=== PATIENT | female | born 1940 | race Two or more races ===

== ENCOUNTER 2017-05-24 04:14 | Inpatient (IN) | payer MEDICAID, MEDICARE ==
[~2017-05-24] VITALS: Ht 167.6 cm
[2017-05-24 05:08] LABS: Basophils # (auto) 0.2 uL; Basophils % (auto) 1.3 % (0.0-2.0); Eosinophils # (auto) 0.2 uL; Eosinophils % (auto) 1.3 % (0.0-7.0); Hemoglobin 10.1 g/dL (12.2-16.2); Lymphocytes # (auto) 1.4 uL; Lymphocytes % (auto) 8.9 % (10.0-50.0); Mean Corpuscular Hemoglobin 32.6 pg (28.0-32.0); Mean Corpuscular Hgb Conc. 33.6 g/dL (32.0-36.0); Mean Platelet Volume 10.3 fL (6.9-10.8); Monocytes # (auto) 0.9 uL; Monocytes % (auto) 5.6 % (0.0-12.0); Neutrophils # (auto) 13.3 uL; Neutrophils % (auto) 82.9 % (37.0-80.0); Nucleated Red Blood Cells % 0.1 %; Platelet Count (auto) 302 10^3/uL (140-450); Red Cell Distribution Width 13.4 % (11.8-14.3); White Blood Cell 16.1 10^3/uL (4.4-10.8)
[2017-05-24 05:23] LABS: Albumin 3.2 g/dL (3.4-5.0); BUN/Creatinine Ratio 16.8; Calcium 8.7 mg/dL (8.5-10.1); Potassium 4.9 mmol/L (3.5-5.1)
[2017-05-24 05:25] LABS: INR 0.97 (0.9-1.15); Partial Thromboplastin Time 25.4 sec (22.64-33.71); Prothrombin Time 10.6 sec (9.37-12.3)
[2017-05-24 05:28] LABS: Bilirubin, Total 0.3 mg/dL (0.2-1.0); Total Protein 7.3 g/dL (6.4-8.2)
[2017-05-24 05:38] LABS: Temperature: 21.8 C (20.0-25.0)
[2017-05-24 05:42] LABS: Urine Bilirubin Negative (Negative); Urine Blood TRACE /uL (Negative); Urine Color Yellow (Yellow); Urine Glucose 4+ mg/dL (Normal); Urine Ketone Negative (Negative); Urine Mucus FEW (None Seen); Urine Nitrite Negative (Negative); Urine RBC 5 /hpf (0 - 4); Urine Squamous Epithelial Cell FEW /hpf (<5); Urine Urobilinogen Normal (Negative); Urine pH 6.5 (5.0-8.0)
[2017-05-24] MEDS: NITROGLYCERIN 50MG/250ML 250 ML IV SCH (06:10)
[2017-05-24] MEDS ORDERED: ENALAPRILAT 1.25 MG/ML-1ML VIAL IV ONE (06:15)
[2017-05-24] MEDS ORDERED: LABETALOL HCL 5 MG/ML 4ML SYRINGE IV ONE ×2 (07:36→07:45)
[2017-05-24] MEDS ORDERED: PIPERACILLIN-TAZOB 3.375GM 100 ML IV ONE (07:45)
[2017-05-24] MEDS ORDERED: ENOXAPARIN SOD 80 MG/0.8ML SYRINGE SC ONE (07:45)
[2017-05-24] MEDS ORDERED: FUROSEMIDE 40 MG/4 ML VIAL IV ONE ×2 (08:30→10:45)
[2017-05-24] MEDS ORDERED: DEXTROSE (50%) 50ML SYRG IV PRN (09:00)
[2017-05-24] MEDS ORDERED: INSULIN DETEMIR(LEVEMIR) 1unit/0.01ml Soln (100units/ml) SC ONE (09:00)
[2017-05-24] MEDS ORDERED: MORPHINE SULF INJ 2 MG/ML SYRINGE 1ML IV PRN ×2 (09:15)
[2017-05-24] MEDS ORDERED: ALUM & MAG HYDROX-SIMETH LIQ(MAALOX) 30 ML PO ONE (09:15)
[2017-05-24] MEDS ORDERED: LORazepam 0.5 MG TAB PO PRN (09:15)
[2017-05-24] MEDS ORDERED: ZOLPIDEM TARTRATE 5 MG TAB PO PRN (09:15)
[2017-05-24] MEDS ORDERED: cefTRIAXone 1GM/50ML D5W 50 ML IV ONE (09:15)
[2017-05-24] MEDS ORDERED: NITROGLYCERIN 0.4 MG SL TAB SL PRN ×2 (09:15)
[2017-05-24] MEDS ORDERED: ONDANSETRON HCL 4 MG/2 ML VIAL IV PRN (09:15)
[2017-05-24] MEDS ORDERED: cloNIDine HCL 0.1 MG TAB PO PRN ×2 (09:30→16:00)
[2017-05-24] MEDS ORDERED: LABETALOL HCL 5 MG/ML 4ML SYRINGE IV PRN (09:30)
[2017-05-24] MEDS: DOCUSATE SOD 100 MG CAP PO SCH (09:55)
[2017-05-24] MEDS: ASPirin 81 mg TAB PO SCH (09:55)
[2017-05-24] MEDS: POTASSIUM CHL 10 Meq TABLET PO SCH (09:56)
[2017-05-24] MEDS: CLOPIDOGREL BISULFATE 75 MG TAB PO SCH (09:56)
[2017-05-24] MEDS: ENOXAPARIN SOD 80 MG/0.8ML SYRINGE SC SCH (09:57)
[2017-05-24] MEDS ORDERED: ENOXAPARIN SOD 80 MG/0.8ML SYRINGE SC SCH (10:00)
[2017-05-24] MEDS ORDERED: LOSARTAN POTASSIUM 25 MG TAB PO SCH (10:00)
[2017-05-24] MEDS ORDERED: CARVEDILOL 3.125 MG TAB PO SCH (10:00)
[2017-05-24] MEDS: LINEZOLID 600MG/300ML 300 ML IV SCH ×2 (10:00→21:35)
[2017-05-24] MEDS ORDERED: ENALAPRIL MALEATE 2.5 MG TAB PO SCH (10:00)
[2017-05-24] MEDS: ACETYLCYSTEINE ORAL for CIN 20%(200MG/ML) 4ML PO SCH ×2 (10:00→21:35)
[2017-05-24] MEDS: ACCU-CHEK COMFORT CURVE STRIP VI SCH ×3 (10:19→21:27)
[2017-05-24] MEDS: InsuLIN REG 1unit/0.01ml Soln (100units/ml) SC SCH ×3 (10:19→21:27)
[2017-05-24] MEDS: Boost Glucose Control 8 Ounces PO SCH ×2 (12:00→17:49)
[2017-05-24 12:34] LABS: Lactic Acid w/Reflex 2.2 mmol/L (0.4-2.0)
[2017-05-24] MEDS: SODIUM CHLOR 0.9% PF (SALINE LOCK) 10ML VIAL IV SCH ×2 (12:34→21:35)
[2017-05-24] MEDS ORDERED: METOPROLOL SUCCINATE XL 50 MG TAB PO ONE (15:45)
[2017-05-24] MEDS ORDERED: amLODIPine BESYLATE 5 MG TAB PO ONE (16:00)
[2017-05-24 17:36] LABS: REFLEX LACTIC ACID YES OR NO YES
[2017-05-24] MEDS ORDERED: FUROSEMIDE 40 MG/4 ML VIAL IV SCH (18:00)
[2017-05-24] MEDS: FUROSEMIDE 40 MG/4 ML VIAL IV SCH (18:18)
[2017-05-24] MEDS: ATORVASTATIN 20 MG TAB PO SCH (21:35)
[2017-05-25] MEDS: SODIUM CHLOR 0.9% PF (SALINE LOCK) 10ML VIAL IV SCH ×3 (06:04→22:16)
[2017-05-25] MEDS: FUROSEMIDE 40 MG/4 ML VIAL IV SCH (06:08)
[2017-05-25] MEDS: NITROGLYCERIN 50MG/250ML 250 ML IV SCH (06:10)
[2017-05-25] MEDS: INSULIN DETEMIR(LEVEMIR) 1unit/0.01ml Soln (100units/ml) SC SCH (06:40)
[2017-05-25] MEDS: ACCU-CHEK COMFORT CURVE STRIP VI SCH ×4 (06:40→22:00)
[2017-05-25] MEDS: InsuLIN REG 1unit/0.01ml Soln (100units/ml) SC SCH ×4 (06:40→23:18)
[2017-05-25] MEDS: Boost Glucose Control 8 Ounces PO SCH ×3 (08:00→18:01)
[2017-05-25 08:06] LABS: Basophils # (auto) 0.1 uL; Basophils % (auto) 0.6 % (0.0-2.0); Eosinophils # (auto) 0.3 uL; Hematocrit 25.1 % (36.0-46.0); Hemoglobin 8.5 g/dL (12.2-16.2); Lymphocytes # (auto) 2.6 uL; Lymphocytes % (auto) 20.1 % (10.0-50.0); Mean Corpuscular Hemoglobin 32.7 pg (28.0-32.0); Mean Corpuscular Hgb Conc. 33.7 g/dL (32.0-36.0); Mean Corpuscular Volume 97.2 fL (80.0-100.0); Mean Platelet Volume 10.1 fL (6.9-10.8); Monocytes # (auto) 1.1 uL; Monocytes % (auto) 8.2 % (0.0-12.0); Neutrophils # (auto) 9.1 uL; Neutrophils % (auto) 69.1 % (37.0-80.0); Platelet Count (auto) 228 10^3/uL (140-450); Red Cell Distribution Width 13.1 % (11.8-14.3); White Blood Cell 13.1 10^3/uL (4.4-10.8)
[2017-05-25 08:18] LABS: Albumin 2.7 g/dL (3.4-5.0); BUN/Creatinine Ratio 18.2; Bilirubin, Total 0.3 mg/dL (0.2-1.0); Calcium 8.5 mg/dL (8.5-10.1); Potassium 4.4 mmol/L (3.5-5.1); Total Protein 6.2 g/dL (6.4-8.2)
[2017-05-25] MEDS: cefTRIAXone 1GM/50ML D5W 50 ML IV SCH (09:00)
[2017-05-25] MEDS: CLOPIDOGREL BISULFATE 75 MG TAB PO SCH (10:00)
[2017-05-25] MEDS ORDERED: EPOETIN ALFA 3,000 UNIT/1 ML VIAL IV ONE (10:00)
[2017-05-25] MEDS: POTASSIUM CHL 10 Meq TABLET PO SCH (10:00)
[2017-05-25] MEDS: ENOXAPARIN SOD 80 MG/0.8ML SYRINGE SC SCH (10:00)
[2017-05-25] MEDS ORDERED: EPOETIN ALFA 2,000 UNIT/1 ML VIAL IV ONE (10:00)
[2017-05-25] MEDS: DOCUSATE SOD 100 MG CAP PO SCH (10:00)
[2017-05-25] MEDS ORDERED: SODIUM CHL 0.9% 1000 ML BAG XX ONE (10:00)
[2017-05-25] MEDS: METOPROLOL SUCCINATE XL 50 MG TAB PO SCH (10:00)
[2017-05-25] MEDS: ACETYLCYSTEINE ORAL for CIN 20%(200MG/ML) 4ML PO SCH ×2 (10:00→23:06)
[2017-05-25] MEDS: ASPirin 81 mg TAB PO SCH (10:00)
[2017-05-25] MEDS: LINEZOLID 600MG/300ML 300 ML IV SCH ×2 (10:00→22:15)
[2017-05-25 17:00] VITALS: BP 156/54
[2017-05-25] MEDS: FUROSEMIDE 40 MG TAB PO SCH (17:26)
[2017-05-25 18:30] VITALS: BP 156/54
[2017-05-25 21:45] VITALS: BP 156/64
[2017-05-25] MEDS: ATORVASTATIN 20 MG TAB PO SCH (22:16)
[2017-05-26] VITALS (7 sets, daily range): BP systolic 132–164; BP diastolic 58–75
[2017-05-26] MEDS: SODIUM CHLOR 0.9% PF (SALINE LOCK) 10ML VIAL IV SCH ×3 (04:53→22:04)
[2017-05-26] MEDS: FUROSEMIDE 40 MG TAB PO SCH ×2 (04:53→18:00)
[2017-05-26] MEDS: NITROGLYCERIN 50MG/250ML 250 ML IV SCH (04:53)
[2017-05-26] MEDS: INSULIN DETEMIR(LEVEMIR) 1unit/0.01ml Soln (100units/ml) SC SCH (05:14)
[2017-05-26] MEDS: ACCU-CHEK COMFORT CURVE STRIP VI SCH ×4 (05:14→22:24)
[2017-05-26] MEDS: InsuLIN REG 1unit/0.01ml Soln (100units/ml) SC SCH ×4 (05:14→22:24)
[2017-05-26 06:42] LABS: Albumin 2.8 g/dL (3.4-5.0); BUN/Creatinine Ratio 17.3; Bilirubin, Total 0.3 mg/dL (0.2-1.0); Calcium 8.1 mg/dL (8.5-10.1); Potassium 4.8 mmol/L (3.5-5.1); Total Protein 6.4 g/dL (6.4-8.2)
[2017-05-26 07:36] LABS: Basophils # (auto) 0.1 uL; Basophils % (auto) 0.7 % (0.0-2.0); Eosinophils # (auto) 0.3 uL; Eosinophils % (auto) 2.1 % (0.0-7.0); Hematocrit 27.2 % (36.0-46.0); Hemoglobin 9.1 g/dL (12.2-16.2); Lymphocytes # (auto) 1.6 uL; Lymphocytes % (auto) 12.8 % (10.0-50.0); Mean Corpuscular Hemoglobin 32.5 pg (28.0-32.0); Mean Corpuscular Hgb Conc. 33.4 g/dL (32.0-36.0); Mean Corpuscular Volume 97.4 fL (80.0-100.0); Mean Platelet Volume 10.6 fL (6.9-10.8); Monocytes # (auto) 1.2 uL; Monocytes % (auto) 9.1 % (0.0-12.0); Neutrophils # (auto) 9.5 uL; Neutrophils % (auto) 75.3 % (37.0-80.0); Platelet Count (auto) 251 10^3/uL (140-450); Red Cell Distribution Width 13.6 % (11.8-14.3); White Blood Cell 12.6 10^3/uL (4.4-10.8)
[2017-05-26] MEDS: Boost Glucose Control 8 Ounces PO SCH ×3 (08:00→18:00)
[2017-05-26] MEDS ORDERED: BUPIVACAINE W/ EPINEPH 0.25% INJ 50ML MDV ONE (08:43)
[2017-05-26] MEDS ORDERED: LIDOCAINE W/ EPINEPHRINE 1 % INJ 30ML ONE (08:43)
[2017-05-26] MEDS ORDERED: LIDOCAINE 1% HCL (LOCAL ANESTH.) INJ 20ML MDV ONE (08:43)
[2017-05-26] MEDS ORDERED: ceFAZolin 1GM VL ONE (08:43)
[2017-05-26] MEDS ORDERED: BUPIVACAINE 0.25% INJ 50ML VIAL ONE (08:43)
[2017-05-26] MEDS ORDERED: HEPARIN 1,000 UNITS/ml 1ML VIAL ONE (08:43)
[2017-05-26] MEDS ORDERED: HEPARIN SODIUM (PORCINE) 5000 UNITS/ML 1ML VIAL ONE (08:44)
[2017-05-26] MEDS ORDERED: ceFAZolin 1GM/50ML D5W 50 ML IV ONE (09:01)
[2017-05-26] MEDS ORDERED: MIDAZOLAM HCL 1MG/1ML-2 ML VIAL ONE (09:07)
[2017-05-26] MEDS ORDERED: fentaNYL CITRATE 100 MCG/2 ML VL ONE (09:07)
[2017-05-26] MEDS ORDERED: PROPOFOL 10 MG/ML 20 ML IV ONE (09:08)
[2017-05-26] MEDS ORDERED: DEXAMETHASONE SOD PHOS 10MG/1ML VIAL INJ ONE (09:08)
[2017-05-26] MEDS ORDERED: ONDANSETRON HCL 4 MG/2 ML VIAL IV ONE (10:00)
[2017-05-26] MEDS ORDERED: ACCU-CHEK COMFORT CURVE STRIP VI ONE (10:00)
[2017-05-26] MEDS: ACETYLCYSTEINE ORAL for CIN 20%(200MG/ML) 4ML PO SCH ×2 (10:00→22:05)
[2017-05-26] MEDS ORDERED: MIDAZOLAM HCL 1MG/1ML-2 ML VIAL IV PRN (10:00)
[2017-05-26] MEDS ORDERED: fentaNYL CITRATE 100 MCG/2 ML VL IV ONE (10:00)
[2017-05-26] MEDS ORDERED: hydrALAZINE HCL 20 MG/ML VL IV PRN (10:00)
[2017-05-26] MEDS ORDERED: KETOROLAC TROMETH 30 MG/ML 1ML VIAL IV ONE (10:00)
[2017-05-26] MEDS ORDERED: ePHEDrine SULFATE 50 MG/ML AMP IV PRN (10:00)
[2017-05-26] MEDS ORDERED: LABETALOL HCL 5 MG/ML 4ML SYRINGE IV PRN (10:00)
[2017-05-26] MEDS: ACETAMINOPHEN 325 MG TAB PO PRN ×2 (11:32→22:04)
[2017-05-26] MEDS: cefTRIAXone 1GM/50ML D5W 50 ML IV SCH (11:46)
[2017-05-26] MEDS: ENOXAPARIN SOD 80 MG/0.8ML SYRINGE SC SCH (11:48)
[2017-05-26] MEDS: DOCUSATE SOD 100 MG CAP PO SCH (11:48)
[2017-05-26] MEDS: METOPROLOL SUCCINATE XL 50 MG TAB PO SCH (11:49)
[2017-05-26] MEDS: ASPirin 81 mg TAB PO SCH (11:49)
[2017-05-26] MEDS: POTASSIUM CHL 10 Meq TABLET PO SCH (11:49)
[2017-05-26] MEDS: CLOPIDOGREL BISULFATE 75 MG TAB PO SCH (11:55)
[2017-05-26] MEDS: LINEZOLID 600MG/300ML 300 ML IV SCH ×2 (14:15→22:04)
[2017-05-26] MEDS ORDERED: SODIUM CHL 0.9% 1000 ML BAG XX ONE (15:30)
[2017-05-26] MEDS ORDERED: EPOETIN ALFA 2,000 UNIT/1 ML VIAL IV ONE (15:30)
[2017-05-26] MEDS ORDERED: EPOETIN ALFA 3,000 UNIT/1 ML VIAL IV ONE (15:30)
[2017-05-26] MEDS: ATORVASTATIN 20 MG TAB PO SCH (22:03)
[2017-05-27 05:00] VITALS: BP 155/82
[2017-05-27] MEDS: SODIUM CHLOR 0.9% PF (SALINE LOCK) 10ML VIAL IV SCH ×3 (05:51→21:46)
[2017-05-27] MEDS: FUROSEMIDE 40 MG TAB PO SCH ×2 (05:51→17:53)
[2017-05-27] MEDS: NITROGLYCERIN 50MG/250ML 250 ML IV SCH (05:52)
[2017-05-27 06:38] LABS: Basophils # (auto) 0.1 uL; Basophils % (auto) 0.8 % (0.0-2.0); Eosinophils # (auto) 0.1 uL; Eosinophils % (auto) 0.9 % (0.0-7.0); Hematocrit 27.7 % (36.0-46.0); Hemoglobin 9.4 g/dL (12.2-16.2); Lymphocytes # (auto) 2.5 uL; Lymphocytes % (auto) 19.2 % (10.0-50.0); Mean Corpuscular Hemoglobin 33.1 pg (28.0-32.0); Mean Corpuscular Volume 97.3 fL (80.0-100.0); Mean Platelet Volume 10.6 fL (6.9-10.8); Monocytes # (auto) 1.5 uL; Monocytes % (auto) 11.4 % (0.0-12.0); Neutrophils # (auto) 8.8 uL; Neutrophils % (auto) 67.7 % (37.0-80.0); Platelet Count (auto) 243 10^3/uL (140-450); Red Cell Distribution Width 13.2 % (11.8-14.3)
[2017-05-27] MEDS: ACCU-CHEK COMFORT CURVE STRIP VI SCH ×4 (06:47→22:00)
[2017-05-27] MEDS: INSULIN DETEMIR(LEVEMIR) 1unit/0.01ml Soln (100units/ml) SC SCH (06:48)
[2017-05-27] MEDS: InsuLIN REG 1unit/0.01ml Soln (100units/ml) SC SCH ×4 (06:48→22:00)
[2017-05-27 07:23] LABS: BUN/Creatinine Ratio 12.9; Bilirubin, Total 0.3 mg/dL (0.2-1.0); Calcium 8.2 mg/dL (8.5-10.1); Potassium 4.3 mmol/L (3.5-5.1)
[2017-05-27] MEDS: Boost Glucose Control 8 Ounces PO SCH ×3 (08:00→17:53)
[2017-05-27] MEDS: cefTRIAXone 1GM/50ML D5W 50 ML IV SCH (08:57)
[2017-05-27 09:05] LABS: Hepatitis B Surface Antibody Positive
[2017-05-27 09:16] VITALS: BP 151/60
[2017-05-27] MEDS: POTASSIUM CHL 10 Meq TABLET PO SCH (09:56)
[2017-05-27] MEDS: ENOXAPARIN SOD 80 MG/0.8ML SYRINGE SC SCH (09:56)
[2017-05-27] MEDS: ASPirin 81 mg TAB PO SCH (09:56)
[2017-05-27] MEDS: CLOPIDOGREL BISULFATE 75 MG TAB PO SCH (09:56)
[2017-05-27] MEDS: LINEZOLID 600MG/300ML 300 ML IV SCH (09:57)
[2017-05-27] MEDS: DOCUSATE SOD 100 MG CAP PO SCH (09:57)
[2017-05-27] MEDS: METOPROLOL SUCCINATE XL 50 MG TAB PO SCH (09:57)
[2017-05-27] MEDS: ACETYLCYSTEINE ORAL for CIN 20%(200MG/ML) 4ML PO SCH (09:58)
[2017-05-27] MEDS ORDERED: ENOXAPARIN SOD 30 MG/0.3 ML SYRINGE SC ONE (12:45)
[2017-05-27] MEDS ORDERED: amLODIPine BESYLATE 5 MG TAB PO ONE (12:45)
[2017-05-27 13:27] VITALS: BP 158/72
[2017-05-27 17:12] VITALS: BP 145/50
[2017-05-27] MEDS: ATORVASTATIN 20 MG TAB PO SCH (21:51)
[2017-05-27] MEDS: ACETAMINOPHEN 325 MG TAB PO PRN (21:53)
[2017-05-27 22:00] VITALS: BP 166/63
[2017-05-27] MEDS ORDERED: cloNIDine HCL 0.1 MG TAB PO SCH (22:00)
[2017-05-28] VITALS (7 sets, daily range): BP systolic 148–168; BP diastolic 50–77
[2017-05-28 05:16] LABS: Basophils # (auto) 0.1 uL; Basophils % (auto) 0.9 % (0.0-2.0); Eosinophils # (auto) 0.2 uL; Eosinophils % (auto) 1.2 % (0.0-7.0); Hemoglobin 8.7 g/dL (12.2-16.2); Lymphocytes # (auto) 2.3 uL; Lymphocytes % (auto) 17.1 % (10.0-50.0); Mean Corpuscular Hemoglobin 32.3 pg (28.0-32.0); Mean Corpuscular Hgb Conc. 33.5 g/dL (32.0-36.0); Mean Corpuscular Volume 96.5 fL (80.0-100.0); Mean Platelet Volume 10.2 fL (6.9-10.8); Monocytes # (auto) 1.5 uL; Monocytes % (auto) 11.1 % (0.0-12.0); Neutrophils # (auto) 9.2 uL; Neutrophils % (auto) 69.7 % (37.0-80.0); Platelet Count (auto) 224 10^3/uL (140-450); Red Cell Distribution Width 13.2 % (11.8-14.3); White Blood Cell 13.2 10^3/uL (4.4-10.8)
[2017-05-28 05:36] LABS: Potassium 4.2 mmol/L (3.5-5.1)
[2017-05-28 05:41] LABS: BUN/Creatinine Ratio 13.1; Calcium 8.7 mg/dL (8.5-10.1)
[2017-05-28] MEDS: SODIUM CHLOR 0.9% PF (SALINE LOCK) 10ML VIAL IV SCH ×3 (05:52→21:54)
[2017-05-28] MEDS: FUROSEMIDE 40 MG TAB PO SCH ×2 (05:52→17:48)
[2017-05-28] MEDS: NITROGLYCERIN 50MG/250ML 250 ML IV SCH (05:53)
[2017-05-28] MEDS: INSULIN DETEMIR(LEVEMIR) 1unit/0.01ml Soln (100units/ml) SC SCH (06:05)
[2017-05-28] MEDS: ACCU-CHEK COMFORT CURVE STRIP VI SCH ×4 (06:05→22:02)
[2017-05-28] MEDS: InsuLIN REG 1unit/0.01ml Soln (100units/ml) SC SCH ×4 (06:05→22:03)
[2017-05-28] MEDS: Boost Glucose Control 8 Ounces PO SCH ×3 (08:00→17:47)
[2017-05-28] MEDS ORDERED: SODIUM CHL 0.9% 1000 ML BAG XX ONE (08:00)
[2017-05-28] MEDS ORDERED: EPOETIN ALFA 10,000 UNIT/1 ML VIAL IV ONE (08:00)
[2017-05-28] MEDS ORDERED: ASPI81CH43 PO (08:51)
[2017-05-28] MEDS ORDERED: METO50TA7 PO (08:51)
[2017-05-28] MEDS ORDERED: AML5T PO (08:51)
[2017-05-28] MEDS ORDERED: ATOR20TA50 PO (08:51)
[2017-05-28] MEDS ORDERED: amLODIPine BESYLATE 5 MG TAB PO SCH (10:00)
[2017-05-28] MEDS: ENOXAPARIN SOD 30 MG/0.3 ML SYRINGE SC SCH (10:00)
[2017-05-28] MEDS: DOCUSATE SOD 100 MG CAP PO SCH (10:00)
[2017-05-28] MEDS: amLODIPine BESYLATE 5 MG TAB PO SCH (10:32)
[2017-05-28] MEDS: ASPirin 81 mg TAB PO SCH (10:33)
[2017-05-28] MEDS: POTASSIUM CHL 10 Meq TABLET PO SCH (10:33)
[2017-05-28] MEDS: METOPROLOL SUCCINATE XL 50 MG TAB PO SCH (10:33)
[2017-05-28] MEDS: cloNIDine HCL 0.1 MG TAB PO SCH ×2 (13:37→21:55)
[2017-05-28] MEDS: ATORVASTATIN 20 MG TAB PO SCH (21:54)
[2017-05-29 04:49] VITALS: BP 144/86
[2017-05-29] MEDS: FUROSEMIDE 40 MG TAB PO SCH ×2 (05:48→17:11)
[2017-05-29] MEDS: cloNIDine HCL 0.1 MG TAB PO SCH ×3 (05:48→22:31)
[2017-05-29] MEDS: SODIUM CHLOR 0.9% PF (SALINE LOCK) 10ML VIAL IV SCH ×3 (05:49→22:31)
[2017-05-29] MEDS: ACCU-CHEK COMFORT CURVE STRIP VI SCH ×4 (05:56→22:00)
[2017-05-29] MEDS: InsuLIN REG 1unit/0.01ml Soln (100units/ml) SC SCH ×4 (06:02→22:35)
[2017-05-29] MEDS: INSULIN DETEMIR(LEVEMIR) 1unit/0.01ml Soln (100units/ml) SC SCH (06:02)
[2017-05-29] MEDS: Boost Glucose Control 8 Ounces PO SCH ×3 (07:52→17:09)
[2017-05-29 09:00] VITALS: BP 149/59
[2017-05-29] MEDS: ACETAMINOPHEN 325 MG TAB PO PRN ×2 (09:21→20:39)
[2017-05-29] MEDS: ASPirin 81 mg TAB PO SCH (10:27)
[2017-05-29] MEDS: POTASSIUM CHL 10 Meq TABLET PO SCH (10:27)
[2017-05-29] MEDS: DOCUSATE SOD 100 MG CAP PO SCH (10:27)
[2017-05-29] MEDS: amLODIPine BESYLATE 5 MG TAB PO SCH (10:28)
[2017-05-29] MEDS: ENOXAPARIN SOD 30 MG/0.3 ML SYRINGE SC SCH (10:28)
[2017-05-29] MEDS: METOPROLOL SUCCINATE XL 50 MG TAB PO SCH (10:28)
[2017-05-29 12:47] VITALS: BP 152/63
[2017-05-29 16:35] VITALS: BP 125/57
[2017-05-29 20:32] VITALS: BP 126/50
[2017-05-29] MEDS: ATORVASTATIN 20 MG TAB PO SCH (22:30)
[2017-05-30 04:26] VITALS: BP 142/44
[2017-05-30] MEDS: cloNIDine HCL 0.1 MG TAB PO SCH ×3 (06:08→21:22)
[2017-05-30] MEDS: SODIUM CHLOR 0.9% PF (SALINE LOCK) 10ML VIAL IV SCH ×3 (06:09→21:26)
[2017-05-30] MEDS: FUROSEMIDE 40 MG TAB PO SCH ×2 (06:09→17:43)
[2017-05-30] MEDS: ACCU-CHEK COMFORT CURVE STRIP VI SCH ×4 (06:19→21:23)
[2017-05-30] MEDS: INSULIN DETEMIR(LEVEMIR) 1unit/0.01ml Soln (100units/ml) SC SCH (06:35)
[2017-05-30] MEDS: InsuLIN REG 1unit/0.01ml Soln (100units/ml) SC SCH ×4 (06:36→21:26)
[2017-05-30] MEDS: Boost Glucose Control 8 Ounces PO SCH ×3 (08:00→16:49)
[2017-05-30 09:00] VITALS: BP 142/46
[2017-05-30] MEDS: POTASSIUM CHL 10 Meq TABLET PO SCH (10:17)
[2017-05-30] MEDS: DOCUSATE SOD 100 MG CAP PO SCH (10:17)
[2017-05-30] MEDS: ASPirin 81 mg TAB PO SCH (10:17)
[2017-05-30] MEDS: METOPROLOL SUCCINATE XL 50 MG TAB PO SCH (10:18)
[2017-05-30] MEDS: ENOXAPARIN SOD 30 MG/0.3 ML SYRINGE SC SCH (10:18)
[2017-05-30] MEDS: amLODIPine BESYLATE 5 MG TAB PO SCH (10:18)
[2017-05-30] MEDS ORDERED: SODIUM CHL 0.9% 1000 ML BAG XX ONE (10:45)
[2017-05-30] MEDS ORDERED: EPOETIN ALFA 10,000 UNIT/1 ML VIAL IV ONE (10:45)
[2017-05-30] MEDS: ACETAMINOPHEN 325 MG TAB PO PRN (11:15)
[2017-05-30 13:00] VITALS: BP 142/55
[2017-05-30 17:00] VITALS: BP 146/51
[2017-05-30] MEDS: ATORVASTATIN 20 MG TAB PO SCH (21:22)
[2017-05-30 22:00] VITALS: BP 136/42
[2017-05-31 04:27] VITALS: BP 148/65
[2017-05-31] MEDS: FUROSEMIDE 40 MG TAB PO SCH ×2 (06:30→17:34)
[2017-05-31] MEDS: cloNIDine HCL 0.1 MG TAB PO SCH ×3 (06:30→22:35)
[2017-05-31] MEDS: SODIUM CHLOR 0.9% PF (SALINE LOCK) 10ML VIAL IV SCH ×3 (06:30→22:35)
[2017-05-31] MEDS: InsuLIN REG 1unit/0.01ml Soln (100units/ml) SC SCH ×5 (06:37→22:36)
[2017-05-31] MEDS: ACCU-CHEK COMFORT CURVE STRIP VI SCH ×4 (06:38→22:36)
[2017-05-31] MEDS: INSULIN DETEMIR(LEVEMIR) 1unit/0.01ml Soln (100units/ml) SC SCH (06:38)
[2017-05-31] MEDS: Boost Glucose Control 8 Ounces PO SCH ×3 (08:00→18:09)
[2017-05-31 08:42] LABS: Basophils # (auto) 0.1 uL; Eosinophils # (auto) 0.1 uL; Hemoglobin 8.1 g/dL (12.2-16.2); Mean Corpuscular Hemoglobin 32.9 pg (28.0-32.0); Mean Platelet Volume 9.8 fL (6.9-10.8); Monocytes # (auto) 0.6 uL; Neutrophils # (auto) 6.1 uL
[2017-05-31 08:43] LABS: Basophils % (auto) 1.3 % (0.0-2.0); Eosinophils % (auto) 1.5 % (0.0-7.0); Hematocrit 23.6 % (36.0-46.0); Lymphocytes # (auto) 1.6 uL; Lymphocytes % (auto) 18.6 % (10.0-50.0); Mean Corpuscular Hgb Conc. 34.2 g/dL (32.0-36.0); Mean Corpuscular Volume 96.3 fL (80.0-100.0); Monocytes % (auto) 7.1 % (0.0-12.0); Neutrophils % (auto) 71.5 % (37.0-80.0); Nucleated Red Blood Cells % 0.1 %; Platelet Count (auto) 189 10^3/uL (140-450); White Blood Cell 8.6 10^3/uL (4.4-10.8)
[2017-05-31 09:00] VITALS: BP 158/67
[2017-05-31 09:09] LABS: Albumin 2.2 g/dL (3.4-5.0); Bilirubin, Total 0.3 mg/dL (0.2-1.0); Potassium 3.5 mmol/L (3.5-5.1); Total Protein 6.2 g/dL (6.4-8.2)
[2017-05-31] MEDS: METOPROLOL SUCCINATE XL 50 MG TAB PO SCH (10:00)
[2017-05-31] MEDS: amLODIPine BESYLATE 5 MG TAB PO SCH (12:00)
[2017-05-31 13:00] VITALS: BP 119/52
[2017-05-31 13:11] LABS: Vitamin D 25-Hydroxy 17 ng/mL (.); Vitamin D-2 25-Hydroxy <1.0 ng/mL (.)
[2017-05-31 14:20] VITALS: BP 193/67
[2017-05-31] MEDS ORDERED: ZOLPIDEM TARTRATE 5 MG TAB PO PRN (15:15)
[2017-05-31] MEDS ORDERED: MORPHINE SULF INJ 2 MG/ML SYRINGE 1ML IV PRN (15:15)
[2017-05-31] MEDS ORDERED: LORazepam 0.5 MG TAB PO PRN (15:15)
[2017-05-31 17:00] VITALS: BP 144/68
[2017-05-31] MEDS: DOCUSATE SOD 100 MG CAP PO SCH (17:34)
[2017-05-31] MEDS: ACETAMINOPHEN 325 MG TAB PO PRN (17:34)
[2017-05-31] MEDS: POTASSIUM CHL 10 Meq TABLET PO SCH (17:34)
[2017-05-31] MEDS: ASPirin 81 mg TAB PO SCH (17:35)
[2017-05-31 22:00] VITALS: BP 125/52
[2017-05-31] MEDS: ATORVASTATIN 20 MG TAB PO SCH (22:36)
[2017-06-01 05:08] VITALS: BP 159/69
[2017-06-01] MEDS: cloNIDine HCL 0.1 MG TAB PO SCH ×4 (06:00→23:59)
[2017-06-01] MEDS: FUROSEMIDE 40 MG TAB PO SCH ×2 (06:00→17:41)
[2017-06-01] MEDS: SODIUM CHLOR 0.9% PF (SALINE LOCK) 10ML VIAL IV SCH ×3 (06:00→23:59)
[2017-06-01] MEDS: ACCU-CHEK COMFORT CURVE STRIP VI SCH ×4 (07:00→23:58)
[2017-06-01] MEDS: InsuLIN REG 1unit/0.01ml Soln (100units/ml) SC SCH ×4 (07:00→23:59)
[2017-06-01] MEDS: INSULIN DETEMIR(LEVEMIR) 1unit/0.01ml Soln (100units/ml) SC SCH (07:00)
[2017-06-01 07:24] LABS: Hematocrit 26.5 % (36.0-46.0); Hemoglobin 8.9 g/dL (12.2-16.2)
[2017-06-01 08:10] VITALS: BP 160/65
[2017-06-01] MEDS: ENOXAPARIN SOD 30 MG/0.3 ML SYRINGE SC SCH (10:05)
[2017-06-01] MEDS: DOCUSATE SOD 100 MG CAP PO SCH (10:05)
[2017-06-01] MEDS: ASPirin 81 mg TAB PO SCH (10:05)
[2017-06-01] MEDS: POTASSIUM CHL 10 Meq TABLET PO SCH (10:05)
[2017-06-01] MEDS: METOPROLOL SUCCINATE XL 50 MG TAB PO SCH (10:06)
[2017-06-01] MEDS: amLODIPine BESYLATE 5 MG TAB PO SCH (10:06)
[2017-06-01] MEDS: Boost Glucose Control 8 Ounces PO SCH ×3 (10:07→17:41)
[2017-06-01] MEDS ORDERED: ASPI81TA27 PO (11:03)
[2017-06-01] MEDS ORDERED: INSLANTI SC (11:03)
[2017-06-01] MEDS ORDERED: LOSA50TA6 PO (11:13)
[2017-06-01 11:53] VITALS: BP 119/41
[2017-06-01 16:43] VITALS: BP 136/60
[2017-06-01] MEDS: ACETAMINOPHEN 325 MG TAB PO PRN (17:54)
[2017-06-01 21:39] VITALS: BP 168/71
[2017-06-01] MEDS: ATORVASTATIN 20 MG TAB PO SCH (23:59)
[2017-06-02 05:00] VITALS: BP 165/69
[2017-06-02] MEDS: FUROSEMIDE 40 MG TAB PO SCH (05:50)
[2017-06-02] MEDS: InsuLIN REG 1unit/0.01ml Soln (100units/ml) SC SCH ×3 (05:50→17:12)
[2017-06-02] MEDS: ACCU-CHEK COMFORT CURVE STRIP VI SCH ×3 (05:50→17:12)
[2017-06-02] MEDS: SODIUM CHLOR 0.9% PF (SALINE LOCK) 10ML VIAL IV SCH ×2 (05:50→14:53)
[2017-06-02] MEDS: ACETAMINOPHEN 325 MG TAB PO PRN ×2 (05:51→18:53)
[2017-06-02] MEDS: cloNIDine HCL 0.1 MG TAB PO SCH (06:00)
[2017-06-02] MEDS ORDERED: INSULIN DETEMIR(LEVEMIR) 1unit/0.01ml Soln (100units/ml) SC SCH ×2 (07:00→22:00)
[2017-06-02] MEDS: Boost Glucose Control 8 Ounces PO SCH ×3 (08:39→18:00)
[2017-06-02 09:00] VITALS: BP 117/58
[2017-06-02] MEDS: amLODIPine BESYLATE 5 MG TAB PO SCH ×2 (10:00→18:30)
[2017-06-02] MEDS: ENOXAPARIN SOD 30 MG/0.3 ML SYRINGE SC SCH (10:00)
[2017-06-02] MEDS: METOPROLOL SUCCINATE XL 50 MG TAB PO SCH (10:00)
[2017-06-02] MEDS ORDERED: EPOETIN ALFA 10,000 UNIT/1 ML VIAL IV ONE (10:45)
[2017-06-02] MEDS ORDERED: SODIUM CHL 0.9% 1000 ML BAG XX ONE (10:45)
[2017-06-02] MEDS ORDERED: CLON0.2T PO (12:56)
[2017-06-02] MEDS ORDERED: FURO40TA4 PO (12:56)
[2017-06-02 13:00] VITALS: BP 123/79
[2017-06-02] MEDS: ASPirin 81 mg TAB PO SCH (14:57)
[2017-06-02] MEDS: DOCUSATE SOD 100 MG CAP PO SCH (14:57)
[2017-06-02 17:00] VITALS: BP_SYST 118; BP_SYST 140; BP_DIAS 70; BP_DIAS 76
[2017-06-02 17:16] VITALS: BP 123/79
[2017-06-02] MEDS ORDERED: cloNIDine HCL 0.1 MG TAB PO SCH (22:00)
== END 2017-06-02 19:55 | disposition home health service (06) | DRG 280 ==
LOC: ER 04:16 → TELE 04:17 → TELE-CENTR 05-25 15:58 → CENTRAL 06-02 15:03
PROVIDERS: ADMIT Internal Medicine; ATTEND Internal Medicine
PROC: 5A1D70Z Performance of Urinary Filtration, Intermittent, Less than 6 Hours Per Day (ICD-10-PCS; 2017-05-23)
PROC: 5A1D70Z Performance of Urinary Filtration, Intermittent, Less than 6 Hours Per Day (ICD-10-PCS; 2017-05-26)
PROC: 02H633Z Insertion of Infusion Device into Right Atrium, Percutaneous Approach (ICD-10-PCS; principal; 2017-05-26 09:21)
PROC: 5A1D70Z Performance of Urinary Filtration, Intermittent, Less than 6 Hours Per Day (ICD-10-PCS; 2017-05-28)
PROC: 5A1D70Z Performance of Urinary Filtration, Intermittent, Less than 6 Hours Per Day (ICD-10-PCS; 2017-05-31)
DX: I21.4 Non-ST elevation (NSTEMI) myocardial infarction (principal); N18.6 End stage renal disease; E44.0 Moderate protein-calorie malnutrition; E11.22 Type 2 diabetes mellitus with diabetic chronic kidney disease; I42.9 Cardiomyopathy, unspecified; R65.10 Systemic inflammatory response syndrome (SIRS) of non-infectious origin without acute organ dysfunction; I13.2 Hypertensive heart and chronic kidney disease with heart failure and with stage 5 chronic kidney disease, or end stage renal disease; I50.43 Acute on chronic combined systolic (congestive) and diastolic (congestive) heart failure; N39.0 Urinary tract infection, site not specified; D63.1 Anemia in chronic kidney disease; Z99.2 Dependence on renal dialysis; Z79.899 Other long term (current) drug therapy
CPT/HCPCS: 36415; 51702; 71010; 76775; 80048; 80053; 80061; 81001; 82306; 82962; 83036; 83605; 83735; 83880; 83970; 84100; 84443; 84484; 85014; 85018; 85025; 85610; 85730; 86706; 86803; 87040; 87086; 87340; 90935; 93005; 93306; 96365; 96366; 96372; 96375; J0690; J0696; J0885; J1100; J1642; J1815; J2001; J2250; J2405; J2543; J2704; J3490; Q4081

== ENCOUNTER → 2017-11-18 | Outpatient (CLI) | payer MEDICARE, MEDICAID ==
[~2017-11-18] MED LIST: AML5T PO; ASPI81CH43 PO; ATOR20TA50 PO; CLON0.2T PO; FURO40TA4 PO; METO50TA7 PO
== END | disposition home or self-care (01) ==
LOC: LAB 16:19
PROVIDERS: ATTEND Family Medicine
DX: E11.22 Type 2 diabetes mellitus with diabetic chronic kidney disease (principal); I12.0 Hypertensive chronic kidney disease with stage 5 chronic kidney disease or end stage renal disease; N18.6 End stage renal disease; Z79.899 Other long term (current) drug therapy
CPT/HCPCS: 36415; 83036

== ENCOUNTER → 2018-05-11 | Outpatient (CLI) | payer MEDICARE, MEDICAID ==
[~2018-05-11] MED LIST changes: +MET5XLT PO; -METO50TA7 PO
[2018-05-11 08:49] LABS: Basophils # (auto) 0.1 uL; Basophils % (auto) 1.4 % (0.0-2.0); Eosinophils # (auto) 0.3 uL; Hematocrit 40.3 % (36.0-46.0); Hemoglobin 13.4 g/dL (12.2-16.2); Lymphocytes # (auto) 2.2 uL; Lymphocytes % (auto) 23.5 % (10.0-50.0); Mean Corpuscular Hemoglobin 33.3 pg (28.0-32.0); Mean Corpuscular Hgb Conc. 33.2 g/dL (32.0-36.0); Mean Corpuscular Volume 100.3 fL (80.0-100.0); Monocytes # (auto) 1.2 uL; Monocytes % (auto) 12.3 % (0.0-12.0); Neutrophils # (auto) 5.6 uL; Neutrophils % (auto) 59.8 % (37.0-80.0); Nucleated Red Blood Cells % 0.1 %; Platelet Count (auto) 190 10^3/uL (140-450); Red Blood Cells 4.01 10^6/uL (4.0-5.20); Red Cell Distribution Width 14.6 % (11.8-14.3); White Blood Cell 9.4 10^3/uL (4.4-10.8)
[2018-05-11 08:50] LABS: Urine Bacteria FEW /hpf (None Seen); Urine Blood Negative /uL (Negative); Urine Hyaline Cast FEW /lpf (0 - 2); Urine Specific Gravity 1.013 (1.001-1.035); Urine WBC 34 /hpf (0 - 5)
[2018-05-11 09:18] LABS: Albumin 4.1 g/dL (3.4-5.0); BUN/Creatinine Ratio 10.8; Bilirubin, Total 0.6 mg/dL (0.2-1.0); Calcium 8.5 mg/dL (8.5-10.1); Potassium 4.3 mmol/L (3.5-5.1); Total Protein 9.3 g/dL (6.4-8.2)
== END | disposition home or self-care (01) ==
LOC: LAB 07:50
PROVIDERS: ATTEND Nurse Practitioner
DX: E11.22 Type 2 diabetes mellitus with diabetic chronic kidney disease (principal); I50.33 Acute on chronic diastolic (congestive) heart failure; N18.6 End stage renal disease; E78.5 Hyperlipidemia, unspecified
CPT/HCPCS: 36415; 80053; 80061; 81001; 82043; 82306; 83036; 84443; 85025

== ENCOUNTER → 2018-07-27 | Outpatient (CLI) | payer MEDICARE, MEDICAID ==
[2018-07-27 16:38] LABS: Basophils # (auto) 0.1 uL; Basophils % (auto) 0.8 % (0.0-2.0); Eosinophils # (auto) 0.1 uL; Eosinophils % (auto) 1.3 % (0.0-7.0); Hematocrit 33.5 % (36.0-46.0); Hemoglobin 11.2 g/dL (12.2-16.2); Lymphocytes # (auto) 1.9 uL; Lymphocytes % (auto) 22.4 % (10.0-50.0); Mean Corpuscular Hemoglobin 32.7 pg (28.0-32.0); Mean Corpuscular Hgb Conc. 33.4 g/dL (32.0-36.0); Mean Corpuscular Volume 98.2 fL (80.0-100.0); Monocytes # (auto) 0.8 uL; Monocytes % (auto) 9.4 % (0.0-12.0); Neutrophils # (auto) 5.7 uL; Neutrophils % (auto) 66.1 % (37.0-80.0); Platelet Count (auto) 178 10^3/uL (140-450); Red Blood Cells 3.41 10^6/uL (4.0-5.20); Red Cell Distribution Width 15.7 % (11.8-14.3); White Blood Cell 8.7 10^3/uL (4.4-10.8)
[2018-07-27 17:07] LABS: Urine Amorphous Crystal FEW /hpf (None Seen); Urine Bacteria FEW /hpf (None Seen); Urine Blood Negative /uL (Negative); Urine Hyaline Cast FEW /lpf (0 - 2); Urine Specific Gravity 1.019 (1.001-1.035); Urine WBC 34 /hpf (0 - 5)
[2018-07-27 17:16] LABS: INR 1.01 (0.9-1.15); Partial Thromboplastin Time 26.9 sec (23.78-33.04); Prothrombin Time 10.8 sec (9.27-12.13)
[2018-07-27 17:26] LABS: BUN/Creatinine Ratio 11.1
[2018-07-27 17:27] LABS: Albumin 3.8 g/dL (3.4-5.0); Bilirubin, Total 0.4 mg/dL (0.2-1.0); Calcium 8.4 mg/dL (8.5-10.1); Total Protein 7.7 g/dL (6.4-8.2)
== END | disposition home or self-care (01) ==
LOC: LAB 15:57
PROVIDERS: ATTEND Nurse Practitioner
DX: Z01.818 Encounter for other preprocedural examination (principal); I12.0 Hypertensive chronic kidney disease with stage 5 chronic kidney disease or end stage renal disease; E11.22 Type 2 diabetes mellitus with diabetic chronic kidney disease; N18.6 End stage renal disease
CPT/HCPCS: 36415; 80053; 81001; 85025; 85610; 85730

== ENCOUNTER → 2018-09-13 | Outpatient (CLI) | payer MEDICARE, MEDICAID ==
[2018-09-13 09:23] LABS: Basophils # (auto) 0.1 uL; Basophils % (auto) 0.7 % (0.0-2.0); Eosinophils # (auto) 0.2 uL; Hematocrit 34.2 % (36.0-46.0); Hemoglobin 11.6 g/dL (12.2-16.2); Lymphocytes # (auto) 2.7 uL; Lymphocytes % (auto) 28.1 % (10.0-50.0); Mean Corpuscular Hemoglobin 33.9 pg (28.0-32.0); Mean Corpuscular Hgb Conc. 33.9 g/dL (32.0-36.0); Monocytes # (auto) 1.1 uL; Monocytes % (auto) 11.6 % (0.0-12.0); Neutrophils # (auto) 5.5 uL; Neutrophils % (auto) 57.6 % (37.0-80.0); Nucleated Red Blood Cells % 0.1 %; Platelet Count (auto) 169 10^3/uL (140-450); Red Blood Cells 3.43 10^6/uL (4.0-5.20); Red Cell Distribution Width 14.8 % (11.8-14.3); White Blood Cell 9.5 10^3/uL (4.4-10.8)
[2018-09-13 09:37] LABS: Albumin 3.8 g/dL (3.4-5.0); BUN/Creatinine Ratio 9.6; Potassium 4.5 mmol/L (3.5-5.1)
[2018-09-13 09:40] LABS: Bilirubin, Total 0.6 mg/dL (0.2-1.0); Total Protein 7.9 g/dL (6.4-8.2)
[2018-09-13 09:43] LABS: Urine Amorphous Crystal MOD /hpf (None Seen); Urine Bacteria FEW /hpf (None Seen); Urine Blood TRACE /uL (Negative); Urine Specific Gravity 1.019 (1.001-1.035); Urine WBC 304 /hpf (0 - 5); Urine WBC Clumps PRESENT /hpf (None Seen)
== END | disposition home or self-care (01) ==
LOC: LAB 08:57
PROVIDERS: ATTEND Nurse Practitioner
DX: E11.22 Type 2 diabetes mellitus with diabetic chronic kidney disease (principal); I13.2 Hypertensive heart and chronic kidney disease with heart failure and with stage 5 chronic kidney disease, or end stage renal disease; N18.6 End stage renal disease; E78.5 Hyperlipidemia, unspecified; I50.43 Acute on chronic combined systolic (congestive) and diastolic (congestive) heart failure
CPT/HCPCS: 36415; 80053; 80061; 81001; 82043; 83036; 85025

== ENCOUNTER → 2018-11-24 | Outpatient (CLI) | payer MEDICARE, MEDICAID ==
[2018-11-24 09:39] LABS: Basophils # (auto) 0.1 uL; Basophils % (auto) 0.7 % (0.0-2.0); Eosinophils # (auto) 0.2 uL; Eosinophils % (auto) 1.8 % (0.0-7.0); Hematocrit 35.8 % (36.0-46.0); Hemoglobin 11.9 g/dL (12.2-16.2); Lymphocytes # (auto) 2.2 uL; Lymphocytes % (auto) 23.3 % (10.0-50.0); Mean Corpuscular Hemoglobin 33.4 pg (28.0-32.0); Mean Corpuscular Hgb Conc. 33.3 g/dL (32.0-36.0); Mean Corpuscular Volume 100.4 fL (80.0-100.0); Monocytes # (auto) 1.1 uL; Monocytes % (auto) 11.4 % (0.0-12.0); Neutrophils % (auto) 62.8 % (37.0-80.0); Platelet Count (auto) 169 10^3/uL (140-450); Red Blood Cells 3.57 10^6/uL (4.0-5.20); Red Cell Distribution Width 13.1 % (11.8-14.3); White Blood Cell 9.5 10^3/uL (4.4-10.8)
[2018-11-24 09:58] LABS: INR 0.94 (0.9-1.15); Partial Thromboplastin Time 26.6 sec (23.78-33.04); Prothrombin Time 10.1 sec (9.27-12.13)
[2018-11-24 10:40] LABS: Potassium 4.4 mmol/L (3.5-5.1)
[2018-11-24 10:49] LABS: BUN/Creatinine Ratio 11.2; Calcium 8.3 mg/dL (8.5-10.1)
== END | disposition home or self-care (01) ==
LOC: LAB 08:25
DX: I12.0 Hypertensive chronic kidney disease with stage 5 chronic kidney disease or end stage renal disease (principal); E11.22 Type 2 diabetes mellitus with diabetic chronic kidney disease; N18.6 End stage renal disease
CPT/HCPCS: 36415; 80048; 85025; 85610; 85730

== ENCOUNTER → 2018-12-22 | Outpatient (CLI) | payer MEDICARE, MEDICAID ==
[2018-12-22 09:09] LABS: Basophils # (auto) 0.1 uL; Eosinophils # (auto) 0.2 uL; Hemoglobin 12.2 g/dL (12.2-16.2); Lymphocytes # (auto) 2.5 uL; Nucleated Red Blood Cells % 0.1 %; White Blood Cell 9.8 10^3/uL (4.4-10.8)
[2018-12-22 09:11] LABS: Basophils % (auto) 1.1 % (0.0-2.0); Eosinophils % (auto) 1.5 % (0.0-7.0); Hematocrit 36.1 % (36.0-46.0); Lymphocytes % (auto) 25.2 % (10.0-50.0); Mean Corpuscular Hemoglobin 33.5 pg (28.0-32.0); Mean Corpuscular Hgb Conc. 33.7 g/dL (32.0-36.0); Mean Corpuscular Volume 99.4 fL (80.0-100.0); Monocytes % (auto) 10.5 % (0.0-12.0); Neutrophils % (auto) 61.7 % (37.0-80.0); Platelet Count (auto) 156 10^3/uL (140-450); Red Blood Cells 3.63 10^6/uL (4.0-5.20); Red Cell Distribution Width 13.2 % (11.8-14.3)
[2018-12-22 09:13] LABS: Urine Bacteria NONE SEEN /hpf (None Seen); Urine Blood TRACE /uL (Negative); Urine Specific Gravity 1.012 (1.001-1.035); Urine WBC 64 /hpf (0 - 5)
[2018-12-22 09:23] LABS: Albumin 4.3 g/dL (3.4-5.0); Calcium 8.7 mg/dL (8.5-10.1); Potassium 4.3 mmol/L (3.5-5.1)
[2018-12-22 09:28] LABS: BUN/Creatinine Ratio 10.2; Bilirubin, Total 0.6 mg/dL (0.2-1.0); Total Protein 8.6 g/dL (6.4-8.2)
== END | disposition home or self-care (01) ==
LOC: LAB 08:35
PROVIDERS: ATTEND Nurse Practitioner
DX: E78.5 Hyperlipidemia, unspecified (principal); K71.9 Toxic liver disease, unspecified; R79.89 Other specified abnormal findings of blood chemistry
CPT/HCPCS: 36415; 80053; 80061; 81001; 82043; 83036; 85025

== ENCOUNTER → 2019-03-15 | Outpatient (CLI) | payer MEDICARE, MEDICAID ==
[~2019-03-15] MED LIST changes: -MET5XLT PO; +METO-6 PO
== END | disposition home or self-care (01) ==
LOC: XYW 08:57
PROVIDERS: ATTEND Internal Medicine
DX: Z01.818 Encounter for other preprocedural examination (principal); I08.8 Other rheumatic multiple valve diseases
CPT/HCPCS: 93306

== ENCOUNTER → 2019-03-21 | Outpatient (CLI) | payer MEDICARE, MEDICAID ==
[2019-03-21 09:22] LABS: Basophils # (auto) 0.1 uL; Eosinophils # (auto) 0.2 uL; Lymphocytes # (auto) 3.3 uL; Mean Corpuscular Volume 103.4 fL (80.0-100.0); Monocytes # (auto) 1.2 uL; Nucleated Red Blood Cells % 0.1 %
[2019-03-21 09:24] LABS: Basophils % (auto) 0.8 % (0.0-2.0); Eosinophils % (auto) 1.8 % (0.0-7.0); Hematocrit 36.5 % (36.0-46.0); Hemoglobin 12.2 g/dL (12.2-16.2); Lymphocytes % (auto) 31.8 % (10.0-50.0); Mean Corpuscular Hemoglobin 34.6 pg (28.0-32.0); Mean Corpuscular Hgb Conc. 33.4 g/dL (32.0-36.0); Monocytes % (auto) 11.6 % (0.0-12.0); Neutrophils # (auto) 5.6 uL; Platelet Count (auto) 154 10^3/uL (140-450); Red Blood Cells 3.53 10^6/uL (4.0-5.20); Red Cell Distribution Width 14.5 % (11.8-14.3); White Blood Cell 10.3 10^3/uL (4.4-10.8)
[2019-03-21 09:30] LABS: Urine Bacteria FEW /hpf (None Seen); Urine Blood Negative /uL (Negative); Urine Hyaline Cast FEW /lpf (0 - 2); Urine Specific Gravity 1.013 (1.001-1.035); Urine WBC 79 /hpf (0 - 5)
== END | disposition home or self-care (01) ==
LOC: LAB 08:05
PROVIDERS: ATTEND Nurse Practitioner
DX: E11.9 Type 2 diabetes mellitus without complications (principal)
CPT/HCPCS: 36415; 81001; 82043; 83036; 85025

== ENCOUNTER → 2019-03-29 | Outpatient (CLI) | payer MEDICARE, MEDICAID ==
[~2019-03-29] VITALS: Ht 142.2 cm; Wt 63.5 kg
[~2019-03-29] MED LIST changes: +ADENOSINE 53 MG in GIVE UN-DILUTED 0 ML IV STA
== END | disposition home or self-care (01) ==
LOC: XY 08:22
PROVIDERS: ATTEND Internal Medicine
DX: Z01.818 Encounter for other preprocedural examination (principal); I13.0 Hypertensive heart and chronic kidney disease with heart failure and stage 1 through stage 4 chronic kidney disease, or unspecified chronic kidney disease; E11.22 Type 2 diabetes mellitus with diabetic chronic kidney disease; I50.43 Acute on chronic combined systolic (congestive) and diastolic (congestive) heart failure; N18.4 Chronic kidney disease, stage 4 (severe); H26.9 Unspecified cataract
CPT/HCPCS: 78452; 93017; A9500; J0153

== ENCOUNTER → 2019-08-24 | Outpatient (CLI) | payer MEDICARE, MEDICAID ==
[~2019-08-24] MED LIST changes: -ADENOSINE 53 MG in GIVE UN-DILUTED 0 ML IV STA
[2019-08-24 15:13] LABS: Basophils # (auto) 0.1 uL; Basophils % (auto) 0.9 % (0.0-2.0); Eosinophils # (auto) 0.1 uL; Eosinophils % (auto) 1.2 % (0.0-7.0); Hematocrit 36.4 % (36.0-46.0); Hemoglobin 12.3 g/dL (12.2-16.2); Lymphocytes # (auto) 2.1 uL; Lymphocytes % (auto) 24.7 % (10.0-50.0); Mean Corpuscular Hemoglobin 33.7 pg (28.0-32.0); Mean Corpuscular Hgb Conc. 33.8 g/dL (32.0-36.0); Mean Corpuscular Volume 99.6 fL (80.0-100.0); Monocytes # (auto) 0.6 uL; Monocytes % (auto) 7.5 % (0.0-12.0); Neutrophils # (auto) 5.7 uL; Neutrophils % (auto) 65.7 % (37.0-80.0); Nucleated Red Blood Cells % 0.1 %; Platelet Count (auto) 181 10^3/uL (140-450); Red Blood Cells 3.66 10^6/uL (4.0-5.20); Red Cell Distribution Width 13.5 % (11.8-14.3); White Blood Cell 8.6 10^3/uL (4.4-10.8)
[2019-08-24 15:15] LABS: Urine Amorphous Crystal FEW /hpf (None Seen); Urine Bacteria FEW /hpf (None Seen); Urine Blood TRACE /uL (Negative); Urine Hyaline Cast FEW /lpf (0 - 2); Urine Specific Gravity 1.021 (1.001-1.035); Urine WBC 167 /hpf (0 - 5); Urine WBC Clumps PRESENT /hpf (None Seen)
[2019-08-24 16:10] LABS: Albumin 3.9 g/dL (3.4-5.0); Potassium 3.9 mmol/L (3.5-5.1)
[2019-08-24 16:18] LABS: BUN/Creatinine Ratio 7.6; Bilirubin, Total 0.6 mg/dL (0.2-1.0); Calcium 9.1 mg/dL (8.5-10.1); Total Protein 8.9 g/dL (6.4-8.2)
== END | disposition home or self-care (01) ==
LOC: LAB 14:34
PROVIDERS: ATTEND Nurse Practitioner
DX: E11.9 Type 2 diabetes mellitus without complications (principal); E78.5 Hyperlipidemia, unspecified
CPT/HCPCS: 36415; 80053; 80061; 81001; 82043; 83036; 84443; 85025

== ENCOUNTER → 2020-07-16 | Outpatient (CLI) | payer MEDICARE, MEDICAID ==
[2020-07-16 08:02] LABS: Basophils # (auto) 0.1 10 ^3/uL (0-0.2); Basophils % (auto) 0.7 % (0.0-2.0); Eosinophils # (auto) 0.2 10 ^3/uL (0-0.8); Eosinophils % (auto) 1.5 % (0.0-7.0); Hematocrit 34.5 % (36.0-46.0); Hemoglobin 11.3 g/dL (12.2-16.2); Lymphocytes # (auto) 3.5 10 ^3/uL (0.4-5.4); Lymphocytes % (auto) 34.4 % (10.0-50.0); Mean Corpuscular Hemoglobin 33.9 pg (28.0-32.0); Mean Corpuscular Hgb Conc. 32.7 g/dL (32.0-36.0); Mean Corpuscular Volume 103.7 fL (80.0-100.0); Monocytes # (auto) 1.2 10 ^3/uL (0-1.3); Monocytes % (auto) 11.7 % (0.0-12.0); Neutrophils # (auto) 5.2 10 ^3/uL (1.6-8.6); Neutrophils % (auto) 51.7 % (37.0-80.0); Nucleated Red Blood Cells % 0.3 %; Platelet Count (auto) 175 10^3/uL (140-450); Red Blood Cells 3.32 10^6/uL (4.0-5.20); Red Cell Distribution Width 14.6 % (11.8-14.3); White Blood Cell 10.1 10^3/uL (4.4-10.8)
[2020-07-16 08:11] LABS: Urine Bacteria NONE SEEN /hpf (None Seen); Urine Blood Negative /uL (Negative); Urine Specific Gravity 1.014 (1.001-1.035); Urine WBC 110 /hpf (0 - 5); Urine WBC Clumps PRESENT /hpf (None Seen)
[2020-07-16 08:28] LABS: Potassium 3.8 mmol/L (3.5-5.1)
[2020-07-16 08:40] LABS: Albumin 3.7 g/dL (3.4-5.0); BUN/Creatinine Ratio 12.5; Bilirubin, Total 0.8 mg/dL (0.2-1.0); Calcium 8.2 mg/dL (8.5-10.1); Total Protein 7.7 g/dL (6.4-8.2)
== END | disposition home or self-care (01) ==
LOC: LAB 07:37
PROVIDERS: ATTEND Nurse Practitioner
DX: E11.22 Type 2 diabetes mellitus with diabetic chronic kidney disease (principal); N18.4 Chronic kidney disease, stage 4 (severe); E78.5 Hyperlipidemia, unspecified
CPT/HCPCS: 36415; 80053; 80061; 81001; 82043; 83036; 85025

== ENCOUNTER 2020-10-28 17:42 | Inpatient (IN) | payer MEDICARE, MEDICAID ==
[~2020-10-28] VITALS: Ht 152.4 cm; Wt 59.0 kg
[2020-10-28] MEDS ORDERED: PIPERACILLIN-TAZO 4.5GM 100 ML IV ONE (18:00)
[2020-10-28] MEDS ORDERED: methylPREDNISolone SOD SUCC 125 MG/2 ML VL IV ONE (18:00)
[2020-10-28] MEDS ORDERED: ALBUTEROL SULF 2.5 MG/0.5ML(0.5%) NEB SOLN NEB ONE (18:00)
[2020-10-28] MEDS: VANCOMYCIN 1GM/250ML 250 ML IV ONE ×2 (18:28→18:45)
[2020-10-28 19:58] LABS: Basophils # (auto) 0 10 ^3/uL (0-0.2); Basophils % (auto) 0.1 % (0.0-2.0); Eosinophils # (auto) 0 10 ^3/uL (0-0.8); Hematocrit 30.7 % (36.0-46.0); Hemoglobin 10.5 g/dL (12.2-16.2); Lymphocytes # (auto) 0.3 10 ^3/uL (0.4-5.4); Monocytes # (auto) 0.7 10 ^3/uL (0-1.3)
[2020-10-28 19:59] LABS: Lymphocytes % (auto) 2.2 % (10.0-50.0); Mean Corpuscular Hemoglobin 34.9 pg (28.0-32.0); Mean Corpuscular Hgb Conc. 34.1 g/dL (32.0-36.0); Mean Corpuscular Volume 102.2 fL (80.0-100.0); Monocytes % (auto) 4.9 % (0.0-12.0); Neutrophils # (auto) 13.1 10 ^3/uL (1.6-8.6); Neutrophils % (auto) 92.8 % (37.0-80.0); Nucleated Red Blood Cells % 0.1 %; Platelet Count (auto) 222 10^3/uL (140-450); Red Cell Distribution Width 13.6 % (11.8-14.3); White Blood Cell 14.1 10^3/uL (4.4-10.8)
[2020-10-28 20:17] LABS: Albumin 3.6 g/dL (3.4-5.0); Calcium 8.5 mg/dL (8.5-10.1); Potassium 4.1 mmol/L (3.5-5.1)
[2020-10-28 20:20] LABS: BUN/Creatinine Ratio 9.3; Bilirubin, Total 0.8 mg/dL (0.2-1.0); Total Protein 8.1 g/dL (6.4-8.2)
[2020-10-28 20:29] LABS: Lactic Acid w/Reflex 4.2 mmol/L (0.4-2.0)
[2020-10-28] MEDS ORDERED: DEXTROSE (50%) 50ML SYRG IV PRN (21:15)
[2020-10-28] MEDS ORDERED: NITROGLYCERIN 0.4 MG SL TAB SL PRN (21:15)
[2020-10-28] MEDS ORDERED: MORPHINE SULF INJ 2 MG/ML SYRINGE 1ML IV PRN (21:15)
[2020-10-28] MEDS ORDERED: FUROSEMIDE 40 MG/4 ML VIAL IV ONE (21:15)
[2020-10-28] MEDS ORDERED: ONDANSETRON HCL 4 MG/2 ML VIAL IV ONE (21:30)
[2020-10-28] MEDS ORDERED: levoFLOXacin 250MG 50 ML IV SCH (22:00)
[2020-10-28] MEDS: ATORVASTATIN 20 MG TAB PO SCH (22:50)
[2020-10-28] MEDS: ACCU-CHEK COMFORT CURVE STRIP VI SCH (22:50)
[2020-10-28] MEDS: InsuLIN REG 1unit/0.01ml Soln (100units/ml) SC SCH (22:50)
[2020-10-29] VITALS (15 sets, daily range): BP systolic 97–139; BP diastolic 38–81
[2020-10-29] MEDS: ONDANSETRON HCL 4 MG/2 ML VIAL IV PRN ×2 (04:09→08:10)
[2020-10-29] MEDS: PIPERACILLIN-TAZOB 2.25GM 50 ML IV SCH ×3 (05:30→21:54)
[2020-10-29] MEDS: FUROSEMIDE 20 MG/2 ML VIAL IV SCH ×2 (05:30→21:54)
[2020-10-29] MEDS: LEVOTHYROXINE SODIUM 25 MCG TAB PO SCH (06:18)
[2020-10-29] MEDS: ACCU-CHEK COMFORT CURVE STRIP VI SCH ×4 (06:18→21:55)
[2020-10-29] MEDS: InsuLIN REG 1unit/0.01ml Soln (100units/ml) SC SCH ×4 (06:29→21:55)
[2020-10-29] MEDS: SEVELAMER 800 MG TAB PO SCH ×3 (08:00→21:53)
[2020-10-29] MEDS ORDERED: ADENOSINE 50 MG in GIVE UN-DILUTED 0 ML IV STA (08:32)
[2020-10-29 10:14] LABS: Hematocrit 30.3 % (36.0-46.0); Mean Corpuscular Hgb Conc. 33.1 g/dL (32.0-36.0); Mean Corpuscular Volume 102.6 fL (80.0-100.0); Platelet Count (auto) 225 10^3/uL (140-450); Red Blood Cells 2.95 10^6/uL (4.0-5.20); Red Cell Distribution Width 13.8 % (11.8-14.3); White Blood Cell 25.2 10^3/uL (4.4-10.8)
[2020-10-29 10:19] LABS: Basophils % (manual) 0 (0.0-2.0); Blast Cells 0; Eosinophils % (manual) 0 (0-7); Metamyelocytes % 0; Myelocytes % 0; Promyelocytes % 0; Reactive Lymphocytes 0
[2020-10-29] MEDS: ASPirin 81 mg TAB PO SCH (10:27)
[2020-10-29] MEDS: PANTOPRAZOLE 40 MG TAB PO SCH (10:28)
[2020-10-29] MEDS: METOPROLOL SUCCINATE XL 50 MG TAB PO SCH (10:28)
[2020-10-29] MEDS: LOSARTAN POTASSIUM 50 MG TAB PO SCH (10:28)
[2020-10-29 10:55] LABS: Calcium 9.4 mg/dL (8.5-10.1); Potassium 4.8 mmol/L (3.5-5.1)
[2020-10-29 11:00] LABS: BUN/Creatinine Ratio 10.9
[2020-10-29 11:01] LABS: Albumin 3.4 g/dL (3.4-5.0); Bilirubin, Total 0.7 mg/dL (0.2-1.0); Total Protein 7.9 g/dL (6.4-8.2)
[2020-10-29 11:59] LABS: Band Neutrophils % (manual) 1; Lymphocytes % (manual) 1 (10.0-50.0); Monocytes % (manual) 5 (0-12)
[2020-10-29] MEDS ORDERED: BUMETANIDE 2.5mg/10ml (0.25 mg/ml) INJ IV ONE ×2 (14:15→16:00)
[2020-10-29] MEDS ORDERED: VANCOMYCIN PER PHARMACY 0 MG IV SCH (17:00)
[2020-10-29] MEDS: ALBUTEROL SULF 2.5 MG/0.5ML(0.5%) NEB SOLN NEB SCH ×2 (18:35→22:18)
[2020-10-29] MEDS: IPRATROPIUM BROM 0.5 MG/2.5ML INH SOL NEB SCH ×2 (18:35→22:18)
[2020-10-29] MEDS: BUDESONIDE (INHALATION) 0.5 MG/2 ML NEB NEB SCH (18:35)
[2020-10-29] MEDS: ACETAMINOPHEN 325 MG TAB PO PRN (21:53)
[2020-10-29] MEDS: ATORVASTATIN 20 MG TAB PO SCH (21:54)
[2020-10-29] MEDS ORDERED: VANCOMYCIN 500 MG in D5W 5% 100 ML IV ONE (23:30)
[2020-10-30] VITALS (36 sets, daily range): BP systolic 83–143; BP diastolic 23–118
[2020-10-30] MEDS: ALBUTEROL SULF 2.5 MG/0.5ML(0.5%) NEB SOLN NEB SCH ×6 (02:28→22:15)
[2020-10-30] MEDS: IPRATROPIUM BROM 0.5 MG/2.5ML INH SOL NEB SCH ×6 (02:28→22:15)
[2020-10-30] MEDS: ONDANSETRON HCL 4 MG/2 ML VIAL IV PRN ×2 (03:24→16:30)
[2020-10-30] MEDS ORDERED: PROMETHAZINE HCL 25 MG/ML 1ML IV ONE (04:30)
[2020-10-30 05:33] LABS: Eosinophils # (auto) 0 10 ^3/uL (0-0.8); Hemoglobin 9.8 g/dL (12.2-16.2); Lymphocytes # (auto) 0.7 10 ^3/uL (0.4-5.4); Mean Corpuscular Hgb Conc. 33.8 g/dL (32.0-36.0)
[2020-10-30 05:35] LABS: Basophils # (auto) 0.1 10 ^3/uL (0-0.2); Basophils % (auto) 0.3 % (0.0-2.0); Hematocrit 28.9 % (36.0-46.0); Lymphocytes % (auto) 2.9 % (10.0-50.0); Mean Corpuscular Hemoglobin 35.3 pg (28.0-32.0); Mean Corpuscular Volume 104.5 fL (80.0-100.0); Monocytes # (auto) 1.4 10 ^3/uL (0-1.3); Monocytes % (auto) 6.1 % (0.0-12.0); Neutrophils # (auto) 20.6 10 ^3/uL (1.6-8.6); Neutrophils % (auto) 90.7 % (37.0-80.0); Platelet Count (auto) 220 10^3/uL (140-450); Red Blood Cells 2.76 10^6/uL (4.0-5.20); White Blood Cell 22.7 10^3/uL (4.4-10.8)
[2020-10-30 05:48] LABS: Calcium 8.9 mg/dL (8.5-10.1); Potassium 4.8 mmol/L (3.5-5.1)
[2020-10-30 05:49] LABS: BUN/Creatinine Ratio 10.8
[2020-10-30] MEDS: PIPERACILLIN-TAZOB 2.25GM 50 ML IV SCH ×3 (05:53→22:13)
[2020-10-30] MEDS: FUROSEMIDE 20 MG/2 ML VIAL IV SCH ×2 (05:53→18:21)
[2020-10-30] MEDS ORDERED: KETOROLAC TROMETH 30 MG/ML 1ML VIAL ONE (05:57)
[2020-10-30] MEDS ORDERED: KETOROLAC TROMETH 30 MG/ML 1ML VIAL IV ONE (06:00)
[2020-10-30] MEDS: BUDESONIDE (INHALATION) 0.5 MG/2 ML NEB NEB SCH ×2 (06:32→18:32)
[2020-10-30] MEDS: LEVOTHYROXINE SODIUM 25 MCG TAB PO SCH (06:34)
[2020-10-30] MEDS: ACCU-CHEK COMFORT CURVE STRIP VI SCH ×4 (06:34→22:13)
[2020-10-30] MEDS: InsuLIN REG 1unit/0.01ml Soln (100units/ml) SC SCH ×4 (06:41→22:23)
[2020-10-30] MEDS ORDERED: SODIUM CHL 0.9% 1000 ML BAG XX ONE ×2 (07:00)
[2020-10-30] MEDS: SEVELAMER 800 MG TAB PO SCH ×4 (08:30→18:21)
[2020-10-30] MEDS: LOSARTAN POTASSIUM 50 MG TAB PO SCH (09:24)
[2020-10-30] MEDS: ASPirin 81 mg TAB PO SCH (09:24)
[2020-10-30] MEDS: METOPROLOL SUCCINATE XL 50 MG TAB PO SCH (09:24)
[2020-10-30] MEDS: PANTOPRAZOLE 40 MG TAB PO SCH (09:24)
[2020-10-30 11:33] LABS: INR 1.24 (0.9-1.15); Partial Thromboplastin Time 26.2 sec (23.0-31.2)
[2020-10-30] MEDS: NOREPINEPHRINE 8 MG/250ML KIT 250 ML IV SCH (12:45)
[2020-10-30] MEDS ORDERED: MIDAZOLAM HCL 1MG/1ML-2 ML VIAL ONE (14:44)
[2020-10-30 20:56] LABS: Albumin 3.4 g/dL (3.4-5.0)
[2020-10-30] MEDS ORDERED: EPOETIN ALFA-EPBX 10,000 UNIT/1ML VIAL SC ONE ×2 (21:00)
[2020-10-30] MEDS: ATORVASTATIN 20 MG TAB PO SCH (22:13)
[2020-10-31] VITALS (55 sets, daily range): BP systolic 85–134; BP diastolic 26–80
[2020-10-31] MEDS: IPRATROPIUM BROM 0.5 MG/2.5ML INH SOL NEB SCH ×6 (01:45→22:06)
[2020-10-31] MEDS: ALBUTEROL SULF 2.5 MG/0.5ML(0.5%) NEB SOLN NEB SCH ×6 (01:45→22:06)
[2020-10-31] MEDS: PIPERACILLIN-TAZOB 2.25GM 50 ML IV SCH ×3 (06:04→22:24)
[2020-10-31] MEDS: FUROSEMIDE 20 MG/2 ML VIAL IV SCH ×2 (06:04→18:13)
[2020-10-31] MEDS: ACCU-CHEK COMFORT CURVE STRIP VI SCH ×4 (06:13→22:25)
[2020-10-31] MEDS: InsuLIN REG 1unit/0.01ml Soln (100units/ml) SC SCH ×4 (06:14→22:00)
[2020-10-31 06:24] LABS: Basophils # (auto) 0.1 10 ^3/uL (0-0.2); Basophils % (auto) 0.3 % (0.0-2.0); Eosinophils # (auto) 0 10 ^3/uL (0-0.8); Eosinophils % (auto) 0.3 % (0.0-7.0); Hematocrit 26.4 % (36.0-46.0); Hemoglobin 8.9 g/dL (12.2-16.2); Lymphocytes # (auto) 1.4 10 ^3/uL (0.4-5.4); Mean Corpuscular Hemoglobin 34.9 pg (28.0-32.0); Mean Corpuscular Hgb Conc. 33.7 g/dL (32.0-36.0); Mean Corpuscular Volume 103.4 fL (80.0-100.0); Monocytes # (auto) 1.2 10 ^3/uL (0-1.3); Monocytes % (auto) 7.9 % (0.0-12.0); Neutrophils # (auto) 12.8 10 ^3/uL (1.6-8.6); Neutrophils % (auto) 82.5 % (37.0-80.0); Platelet Count (auto) 181 10^3/uL (140-450); Red Blood Cells 2.56 10^6/uL (4.0-5.20); White Blood Cell 15.5 10^3/uL (4.4-10.8)
[2020-10-31 06:47] LABS: Potassium 4.8 mmol/L (3.5-5.1)
[2020-10-31] MEDS: LEVOTHYROXINE SODIUM 25 MCG TAB PO SCH (06:47)
[2020-10-31 06:48] LABS: Calcium 8.2 mg/dL (8.5-10.1)
[2020-10-31] MEDS ORDERED: SODIUM CHL 0.9% 1000 ML BAG XX ONE (07:00)
[2020-10-31] MEDS: BUDESONIDE (INHALATION) 0.5 MG/2 ML NEB NEB SCH ×2 (07:50→22:06)
[2020-10-31] MEDS: SEVELAMER 800 MG TAB PO SCH (08:00)
[2020-10-31] MEDS ORDERED: ALBUMIN 25% 100 ML IV ONE (09:15)
[2020-10-31] MEDS ORDERED: MIDODRINE HCL 10 MG TAB PO ONE (09:15)
[2020-10-31] MEDS: NOREPINEPHRINE 8 MG/250ML KIT 250 ML IV SCH (09:25)
[2020-10-31] MEDS: LOSARTAN POTASSIUM 50 MG TAB PO SCH (10:00)
[2020-10-31] MEDS: METOPROLOL SUCCINATE XL 50 MG TAB PO SCH (10:00)
[2020-10-31] MEDS: PANTOPRAZOLE 40 MG TAB PO SCH (10:00)
[2020-10-31] MEDS: ASPirin 81 mg TAB PO SCH (10:00)
[2020-10-31] MEDS: CALCIUM ACETATE 667 MG CAP PO SCH (18:13)
[2020-10-31] MEDS ORDERED: VANCOMYCIN 750mg/250ml 250 ML IV ONE (20:00)
[2020-10-31] MEDS ORDERED: EPOETIN ALFA-EPBX 10,000 UNIT/1ML VIAL SC ONE (21:00)
[2020-10-31] MEDS: ATORVASTATIN 20 MG TAB PO SCH (22:24)
[2020-10-31] MEDS: ONDANSETRON HCL 4 MG/2 ML VIAL IV PRN (22:40)
[2020-11-01] VITALS (84 sets, daily range): BP systolic 72–152; BP diastolic 13–125
[2020-11-01] MEDS: IPRATROPIUM BROM 0.5 MG/2.5ML INH SOL NEB SCH ×4 (02:13→22:30)
[2020-11-01] MEDS: ALBUTEROL SULF 2.5 MG/0.5ML(0.5%) NEB SOLN NEB SCH ×3 (02:13→10:00)
[2020-11-01] MEDS ORDERED: ALBUMIN 5% 250 ML IV ONE (03:15)
[2020-11-01] MEDS: DOCUSATE SOD 100 MG CAP PO SCH ×3 (05:00→21:36)
[2020-11-01] MEDS: ONDANSETRON HCL 4 MG/2 ML VIAL IV PRN ×2 (05:35→10:17)
[2020-11-01] MEDS: PIPERACILLIN-TAZOB 2.25GM 50 ML IV SCH (06:21)
[2020-11-01] MEDS: FUROSEMIDE 20 MG/2 ML VIAL IV SCH (06:21)
[2020-11-01] MEDS: LEVOTHYROXINE SODIUM 25 MCG TAB PO SCH (06:22)
[2020-11-01] MEDS: InsuLIN REG 1unit/0.01ml Soln (100units/ml) SC SCH ×4 (06:28→21:36)
[2020-11-01 06:32] LABS: Basophils # (auto) 0.1 10 ^3/uL (0-0.2); Basophils % (auto) 0.4 % (0.0-2.0); Eosinophils # (auto) 0 10 ^3/uL (0-0.8); Eosinophils % (auto) 0.1 % (0.0-7.0); Hematocrit 29.5 % (36.0-46.0); Hemoglobin 9.8 g/dL (12.2-16.2); Lymphocytes # (auto) 0.9 10 ^3/uL (0.4-5.4); Lymphocytes % (auto) 5.4 % (10.0-50.0); Mean Corpuscular Hemoglobin 34.6 pg (28.0-32.0); Mean Corpuscular Volume 104.7 fL (80.0-100.0); Monocytes # (auto) 1.2 10 ^3/uL (0-1.3); Monocytes % (auto) 7.2 % (0.0-12.0); Neutrophils # (auto) 14.6 10 ^3/uL (1.6-8.6); Neutrophils % (auto) 86.9 % (37.0-80.0); Nucleated Red Blood Cells % 0.1 %; Platelet Count (auto) 214 10^3/uL (140-450); Red Blood Cells 2.82 10^6/uL (4.0-5.20); Red Cell Distribution Width 14.4 % (11.8-14.3); White Blood Cell 16.7 10^3/uL (4.4-10.8)
[2020-11-01] MEDS: ACCU-CHEK COMFORT CURVE STRIP VI SCH ×4 (06:32→21:36)
[2020-11-01 06:51] LABS: BUN/Creatinine Ratio 11.1; Calcium 8.6 mg/dL (8.5-10.1); Potassium 5.4 mmol/L (3.5-5.1)
[2020-11-01] MEDS: CALCIUM ACETATE 667 MG CAP PO SCH ×4 (08:00→18:00)
[2020-11-01] MEDS ORDERED: NOREPINEPHRINE 8 MG/250ML KIT 250 ML IV ONE (09:29)
[2020-11-01] MEDS ORDERED: PHENYLEPHRINE IV 250 ML IV ONE (09:41)
[2020-11-01] MEDS ORDERED: PHENYLEPHRINE IV 250 ML IV SCH (09:45)
[2020-11-01] MEDS ORDERED: ALBUMIN 25% 100 ML IV ONE (09:45)
[2020-11-01] MEDS: PANTOPRAZOLE 40 MG TAB PO SCH (10:00)
[2020-11-01] MEDS: ASPirin 81 mg TAB PO SCH (10:00)
[2020-11-01] MEDS: BUDESONIDE (INHALATION) 0.5 MG/2 ML NEB NEB SCH ×2 (11:10→22:30)
[2020-11-01] MEDS: DOPamine 1600MCG/ML D5W 250 ML IV SCH (12:58)
[2020-11-01] MEDS ORDERED: HEPARIN DRIP/D5W 100UNITS/ML 250 ML IV SCH (13:00)
[2020-11-01] MEDS ORDERED: HEPARIN SODIUM (PORCINE) 5000 UNITS/ML 1ML VIAL IV ONE (13:00)
[2020-11-01] MEDS ORDERED: CLOPIDOGREL 300 MG TAB PO ONE (13:00)
[2020-11-01] MEDS ORDERED: FAMOTIDINE (10MG/ML) 2ML VL IV SCH (13:00)
[2020-11-01] MEDS ORDERED: ROCURONIUM 10MG/ML 10ML VIAL IV ONE (13:43)
[2020-11-01] MEDS ORDERED: ETOMIDATE (2MG/ML) 20ML VIAL IV ONE ×2 (13:43→14:00)
[2020-11-01] MEDS ORDERED: MIDAZOLAM HCL 5 MG/ML-1ML VIAL ONE (13:48)
[2020-11-01] MEDS ORDERED: MIDAZOLAM DRIP 50 mg/50mL 50 ML IV ONE (13:53)
[2020-11-01] MEDS ORDERED: fentaNYL Drip 2500mCg/250mlNS 250 ML IV ONE (13:54)
[2020-11-01] MEDS ORDERED: fentaNYL Drip 2500mCg/250mlNS 250 ML IV SCH (14:00)
[2020-11-01] MEDS ORDERED: MIDAZOLAM HCL 5 MG/ML-1ML VIAL IV ONE (14:00)
[2020-11-01] MEDS ORDERED: LORazepam 2MG/ML-1ML VIAL IV PRN (14:00)
[2020-11-01] MEDS ORDERED: IPRATROPIUM BROM 0.5 MG/2.5ML INH SOL NEB SCH (14:00)
[2020-11-01] MEDS ORDERED: MORPHINE SULFATE 4 MG/ML SYR/VIAL IV PRN (14:00)
[2020-11-01] MEDS ORDERED: MIDAZOLAM DRIP 50 mg/50mL 50 ML IV SCH (14:00)
[2020-11-01] MEDS: MIDAZOLAM DRIP 50 mg/50mL 50 ML IV SCH ×2 (14:15→23:14)
[2020-11-01] MEDS: fentaNYL Drip 2500mCg/250mlNS 250 ML IV SCH (14:15)
[2020-11-01 14:31] LABS: Eosinophils # (auto) 0 10 ^3/uL (0-0.8); Eosinophils % (auto) 0.1 % (0.0-7.0)
[2020-11-01 14:33] LABS: Basophils # (auto) 0.1 10 ^3/uL (0-0.2); Basophils % (auto) 0.5 % (0.0-2.0); Hematocrit 30.4 % (36.0-46.0); Hemoglobin 10.3 g/dL (12.2-16.2); Lymphocytes # (auto) 0.9 10 ^3/uL (0.4-5.4); Lymphocytes % (auto) 5.4 % (10.0-50.0); Mean Corpuscular Hemoglobin 35.1 pg (28.0-32.0); Mean Corpuscular Hgb Conc. 33.7 g/dL (32.0-36.0); Monocytes % (auto) 5.7 % (0.0-12.0); Neutrophils # (auto) 15.1 10 ^3/uL (1.6-8.6); Neutrophils % (auto) 88.3 % (37.0-80.0); Nucleated Red Blood Cells % 0.4 %; Platelet Count (auto) 196 10^3/uL (140-450); Red Blood Cells 2.93 10^6/uL (4.0-5.20); Red Cell Distribution Width 13.9 % (11.8-14.3); White Blood Cell 17.1 10^3/uL (4.4-10.8)
[2020-11-01] MEDS: DOXYCYCLINE 100MG/250ML 250 ML IV SCH (15:00)
[2020-11-01] MEDS: HEPARIN DRIP/D5W 100UNITS/ML 250 ML IV SCH (15:51)
[2020-11-01 15:55] LABS: INR 1.6 (0.9-1.15); Partial Thromboplastin Time 53.7 sec (23.0-31.2)
[2020-11-01] MEDS: PHENYLEPHRINE INJ 40 MG in SODIUM CHL 0.9% 246 ML IV SCH ×2 (16:45→23:15)
[2020-11-01] MEDS: cefTRIAXone 1GM/50ML D5W 50 ML IV SCH ×2 (19:00→20:06)
[2020-11-01] MEDS: ATORVASTATIN 20 MG TAB PO SCH (21:36)
[2020-11-01 22:01] LABS: INR 1.41 (0.9-1.15)
[2020-11-01 22:16] LABS: Partial Thromboplastin Time 76.4 sec (23.0-31.2)
[2020-11-01] MEDS: LEVALBUTEROL HCL 1.25 MG/3 ML NEB NEB SCH (22:30)
[2020-11-02] VITALS (103 sets, daily range): BP systolic 67–131; BP diastolic 23–79
[2020-11-02] MEDS: DOXYCYCLINE 100MG/250ML 250 ML IV SCH ×2 (02:55→16:59)
[2020-11-02] MEDS: PHENYLEPHRINE INJ 40 MG in SODIUM CHL 0.9% 246 ML IV SCH ×5 (02:55→22:45)
[2020-11-02 04:11] LABS: Basophils # (auto) 0.1 10 ^3/uL (0-0.2); Eosinophils # (auto) 0 10 ^3/uL (0-0.8); Hemoglobin 10.5 g/dL (12.2-16.2)
[2020-11-02 04:14] LABS: Basophils % (auto) 0.4 % (0.0-2.0); Eosinophils % (auto) 0.3 % (0.0-7.0); Hematocrit 30.3 % (36.0-46.0); Lymphocytes # (auto) 1.8 10 ^3/uL (0.4-5.4); Lymphocytes % (auto) 9.9 % (10.0-50.0); Mean Corpuscular Hemoglobin 35.5 pg (28.0-32.0); Mean Corpuscular Hgb Conc. 34.4 g/dL (32.0-36.0); Monocytes # (auto) 1.3 10 ^3/uL (0-1.3); Neutrophils # (auto) 15.4 10 ^3/uL (1.6-8.6); Neutrophils % (auto) 82.4 % (37.0-80.0); Nucleated Red Blood Cells % 1.5 %; Platelet Count (auto) 205 10^3/uL (140-450); Red Blood Cells 2.95 10^6/uL (4.0-5.20); Red Cell Distribution Width 13.9 % (11.8-14.3); White Blood Cell 18.6 10^3/uL (4.4-10.8)
[2020-11-02 04:23] LABS: Albumin 3.3 g/dL (3.4-5.0); Calcium 8.3 mg/dL (8.5-10.1)
[2020-11-02 04:46] LABS: BUN/Creatinine Ratio 11.8; Bilirubin, Total 1.1 mg/dL (0.2-1.0); Total Protein 6.8 g/dL (6.4-8.2)
[2020-11-02] MEDS: LEVALBUTEROL HCL 1.25 MG/3 ML NEB NEB SCH ×3 (06:15→18:14)
[2020-11-02] MEDS: InsuLIN REG 1unit/0.01ml Soln (100units/ml) SC SCH ×4 (06:24→21:40)
[2020-11-02] MEDS: IPRATROPIUM BROM 0.5 MG/2.5ML INH SOL NEB SCH ×3 (06:34→18:14)
[2020-11-02] MEDS: BUDESONIDE (INHALATION) 0.5 MG/2 ML NEB NEB SCH ×2 (06:36→22:05)
[2020-11-02] MEDS: ACCU-CHEK COMFORT CURVE STRIP VI SCH ×4 (07:00→21:36)
[2020-11-02] MEDS: CALCIUM ACETATE 667 MG CAP PO SCH ×3 (08:00→18:13)
[2020-11-02 08:17] LABS: INR 1.4 (0.9-1.15); Partial Thromboplastin Time 41.3 sec (23.0-31.2)
[2020-11-02] MEDS: LEVOTHYROXINE SODIUM 25 MCG TAB PO SCH (08:47)
[2020-11-02] MEDS: cefTRIAXone 1GM/50ML D5W 50 ML IV SCH (08:49)
[2020-11-02] MEDS ORDERED: MIDAZOLAM DRIP 50 mg/50mL 50 ML IV ONE (09:46)
[2020-11-02] MEDS: DOCUSATE SOD 100 MG CAP PO SCH (10:00)
[2020-11-02] MEDS: PANTOPRAZOLE 40 MG/10 ML VIAL INJ IV SCH (10:09)
[2020-11-02] MEDS: CLOPIDOGREL BISULFATE 75 MG TAB PO SCH (10:09)
[2020-11-02] MEDS: ASPirin 81 mg TAB PO SCH (10:10)
[2020-11-02] MEDS: MIDAZOLAM DRIP 50 mg/50mL 50 ML IV SCH (10:15)
[2020-11-02] MEDS ORDERED: ALBUMIN 25% 100 ML IV ONE (11:15)
[2020-11-02] MEDS: DOPamine 1600MCG/ML D5W 250 ML IV SCH (12:30)
[2020-11-02] MEDS: fentaNYL Drip 2500mCg/250mlNS 250 ML IV SCH (14:15)
[2020-11-02] MEDS ORDERED: MIDAZOLAM HCL 1MG/1ML-2 ML VIAL IV ONE (14:45)
[2020-11-02] MEDS ORDERED: SODIUM CHLORIDE 0.9% 500 ML IV ONE (15:00)
[2020-11-02] MEDS: VASOPRESSIN 50 UNITS in D5W 5% 247.5 ML IV SCH (15:20)
[2020-11-02] MEDS: HEPARIN DRIP/D5W 100UNITS/ML 250 ML IV SCH (15:51)
[2020-11-02] MEDS: Nepro With Carb Steady 1 Liter Bottle GT SCH (16:00)
[2020-11-02 16:47] LABS: INR 1.39 (0.9-1.15); Partial Thromboplastin Time 57.3 sec (23.0-31.2)
[2020-11-02] MEDS: ACETAMINOPHEN 325 MG TAB PO PRN (18:14)
[2020-11-02] MEDS: ATORVASTATIN 20 MG TAB PO SCH (21:36)
[2020-11-02 21:48] LABS: INR 1.7 (0.9-1.15); Partial Thromboplastin Time 60.3 sec (23.0-31.2)
[2020-11-03] VITALS (101 sets, daily range): BP systolic 94–133; BP diastolic 15–58
[2020-11-03] MEDS: MIDAZOLAM DRIP 50 mg/50mL 50 ML IV SCH ×2 (01:44→14:31)
[2020-11-03] MEDS: PHENYLEPHRINE INJ 40 MG in SODIUM CHL 0.9% 246 ML IV SCH ×5 (03:00→17:50)
[2020-11-03] MEDS: DOXYCYCLINE 100MG/250ML 250 ML IV SCH (03:17)
[2020-11-03 04:08] LABS: Hemoglobin 10.1 g/dL (12.2-16.2); Mean Corpuscular Volume 104.7 fL (80.0-100.0)
[2020-11-03 04:11] LABS: Hematocrit 29.9 % (36.0-46.0); Mean Corpuscular Hemoglobin 35.3 pg (28.0-32.0); Mean Corpuscular Hgb Conc. 33.7 g/dL (32.0-36.0); Platelet Count (auto) 151 10^3/uL (140-450); Red Blood Cells 2.86 10^6/uL (4.0-5.20); White Blood Cell 23.4 10^3/uL (4.4-10.8)
[2020-11-03 04:22] LABS: Band Neutrophils % (manual) 0; Basophils % (manual) 0 (0.0-2.0); Blast Cells 0; Eosinophils % (manual) 0 (0-7); Lactic Acid w/Reflex 3.2 mmol/L (0.4-2.0); Metamyelocytes % 0; Myelocytes % 0; Promyelocytes % 0; Reactive Lymphocytes 0
[2020-11-03 04:55] LABS: INR 1.94 (0.9-1.15); Partial Thromboplastin Time 59.8 sec (23.0-31.2)
[2020-11-03] MEDS: LEVOTHYROXINE SODIUM 25 MCG TAB PO SCH (06:10)
[2020-11-03] MEDS: InsuLIN REG 1unit/0.01ml Soln (100units/ml) SC SCH ×4 (06:10→21:09)
[2020-11-03] MEDS: CALCIUM ACETATE 667 MG CAP PO SCH ×3 (06:11→17:48)
[2020-11-03 06:27] LABS: Lymphocytes % (manual) 1 (10.0-50.0); Monocytes % (manual) 8 (0-12)
[2020-11-03] MEDS: LEVALBUTEROL HCL 1.25 MG/3 ML NEB NEB SCH ×3 (06:32→22:29)
[2020-11-03] MEDS: IPRATROPIUM BROM 0.5 MG/2.5ML INH SOL NEB SCH ×3 (06:32→22:28)
[2020-11-03] MEDS: ACCU-CHEK COMFORT CURVE STRIP VI SCH ×4 (07:00→21:49)
[2020-11-03 07:29] LABS: Albumin 3.1 g/dL (3.4-5.0); BUN/Creatinine Ratio 9.9; Calcium 8.4 mg/dL (8.5-10.1); Magnesium 2.2 mg/dL (1.6-2.6); Potassium 4.8 mmol/L (3.5-5.1)
[2020-11-03 07:37] LABS: Bilirubin, Total 1.2 mg/dL (0.2-1.0); Total Protein 6.3 g/dL (6.4-8.2)
[2020-11-03] MEDS: HEPARIN DRIP/D5W 100UNITS/ML 250 ML IV SCH (07:46)
[2020-11-03] MEDS: cefTRIAXone 1GM/50ML D5W 50 ML IV SCH (08:44)
[2020-11-03] MEDS: PANTOPRAZOLE 40 MG/10 ML VIAL INJ IV SCH (09:17)
[2020-11-03] MEDS: ASPirin 81 mg TAB PO SCH (09:17)
[2020-11-03] MEDS: CLOPIDOGREL BISULFATE 75 MG TAB PO SCH (09:18)
[2020-11-03] MEDS: DOPamine 1600MCG/ML D5W 250 ML IV SCH (09:20)
[2020-11-03] MEDS: BUDESONIDE (INHALATION) 0.5 MG/2 ML NEB NEB SCH ×2 (09:43→22:28)
[2020-11-03] MEDS: ACETAMINOPHEN 325 MG TAB PO PRN (09:50)
[2020-11-03] MEDS: VASOPRESSIN 50 UNITS in D5W 5% 247.5 ML IV SCH (11:33)
[2020-11-03] MEDS ORDERED: VANCOMYCIN PER PHARMACY 0 MG IV SCH (12:45)
[2020-11-03 13:19] LABS: Cholesterol 69 mg/dL (< 200)
[2020-11-03 13:22] LABS: HDL Cholesterol 23 mg/dL (40-59); LDL Cholesterol 35 mg/dL (< 100); Triglycerides 91 mg/dL (< 150)
[2020-11-03] MEDS: PIPERACILLIN-TAZOB 2.25GM 50 ML IV SCH ×2 (14:34→21:08)
[2020-11-03] MEDS: fentaNYL Drip 2500mCg/250mlNS 250 ML IV SCH (14:41)
[2020-11-03] MEDS ORDERED: VANCOMYCIN 1GM/250ML 250 ML IV ONE (17:00)
[2020-11-03] MEDS: ATORVASTATIN 20 MG TAB PO SCH (21:08)
[2020-11-03] MEDS: INSULIN LANTUS (GLARGINE) 1 /0.01ml (100units/ml) SC SCH (21:10)
[2020-11-04] VITALS (98 sets, daily range): BP systolic 89–146; BP diastolic 11–52
[2020-11-04 04:35] LABS: Basophils # (auto) 0.1 10 ^3/uL (0-0.2); Basophils % (auto) 0.4 % (0.0-2.0); Eosinophils # (auto) 0.2 10 ^3/uL (0-0.8); Eosinophils % (auto) 0.8 % (0.0-7.0); Hematocrit 28.2 % (36.0-46.0); Hemoglobin 9.4 g/dL (12.2-16.2); Lymphocytes # (auto) 1.7 10 ^3/uL (0.4-5.4); Lymphocytes % (auto) 8.3 % (10.0-50.0); Mean Corpuscular Hemoglobin 34.9 pg (28.0-32.0); Mean Corpuscular Hgb Conc. 33.3 g/dL (32.0-36.0); Mean Corpuscular Volume 104.8 fL (80.0-100.0); Monocytes # (auto) 1.2 10 ^3/uL (0-1.3); Monocytes % (auto) 5.8 % (0.0-12.0); Neutrophils # (auto) 17.8 10 ^3/uL (1.6-8.6); Neutrophils % (auto) 84.7 % (37.0-80.0); Platelet Count (auto) 126 10^3/uL (140-450); Red Cell Distribution Width 14.5 % (11.8-14.3)
[2020-11-04 04:36] LABS: Nucleated Red Blood Cells % 3.1 %
[2020-11-04 04:57] LABS: Potassium 4.7 mmol/L (3.5-5.1)
[2020-11-04 05:10] LABS: Albumin 2.8 g/dL (3.4-5.0); BUN/Creatinine Ratio 11.9; Bilirubin, Total 1.1 mg/dL (0.2-1.0); Calcium 8.2 mg/dL (8.5-10.1); Magnesium 2.2 mg/dL (1.6-2.6); Total Protein 5.9 g/dL (6.4-8.2)
[2020-11-04 05:13] LABS: INR 1.64 (0.9-1.15)
[2020-11-04] MEDS: BUDESONIDE (INHALATION) 0.5 MG/2 ML NEB NEB SCH ×2 (06:08→18:47)
[2020-11-04] MEDS: LEVALBUTEROL HCL 1.25 MG/3 ML NEB NEB SCH ×3 (06:08→18:47)
[2020-11-04] MEDS: IPRATROPIUM BROM 0.5 MG/2.5ML INH SOL NEB SCH ×3 (06:08→18:47)
[2020-11-04] MEDS: InsuLIN REG 1unit/0.01ml Soln (100units/ml) SC SCH ×4 (06:22→22:00)
[2020-11-04] MEDS: PIPERACILLIN-TAZOB 2.25GM 50 ML IV SCH (06:22)
[2020-11-04] MEDS: ACCU-CHEK COMFORT CURVE STRIP VI SCH ×4 (06:24→22:00)
[2020-11-04] MEDS: CALCIUM ACETATE 667 MG CAP PO SCH ×3 (08:00→18:14)
[2020-11-04] MEDS ORDERED: SODIUM CHL 0.9% 1000 ML BAG XX ONE (08:15)
[2020-11-04] MEDS ORDERED: ALBUMIN 25% 100 ML IV ONE (08:30)
[2020-11-04 10:13] LABS: Hepatitis B Surface Antibody Positive
[2020-11-04 10:38] LABS: Hepatitis A Total Antibody Positive
[2020-11-04] MEDS: VASOPRESSIN 50 UNITS in D5W 5% 247.5 ML IV SCH (10:40)
[2020-11-04] MEDS: PHENYLEPHRINE INJ 40 MG in SODIUM CHL 0.9% 246 ML IV SCH (10:40)
[2020-11-04] MEDS: PANTOPRAZOLE 40 MG/10 ML VIAL INJ IV SCH (11:32)
[2020-11-04] MEDS: DOPamine 1600MCG/ML D5W 250 ML IV SCH (12:34)
[2020-11-04] MEDS: MIDAZOLAM DRIP 50 mg/50mL 50 ML IV SCH (12:35)
[2020-11-04 12:52] LABS: Hepatitis B Core Total AB Negative; Hepatitis B Surface Antigen Negative (Negative); Hepatitis C Antibody Negative (Negative)
[2020-11-04] MEDS: fentaNYL Drip 2500mCg/250mlNS 250 ML IV SCH (14:15)
[2020-11-04] MEDS: ASPirin 81 mg TAB PO SCH (18:15)
[2020-11-04] MEDS ORDERED: EPOETIN ALFA-EPBX 10,000 UNIT/1ML VIAL SC ONE (21:00)
[2020-11-04] MEDS: INSULIN LANTUS (GLARGINE) 1 /0.01ml (100units/ml) SC SCH (22:00)
[2020-11-04] MEDS: MEROPENEM 500MG IVPB 50 ML IV SCH (22:27)
[2020-11-04] MEDS: ATORVASTATIN 20 MG TAB PO SCH (22:27)
[2020-11-05] VITALS (106 sets, daily range): BP systolic 78–127; BP diastolic 13–53
[2020-11-05 04:16] LABS: Basophils # (auto) 0.1 10 ^3/uL (0-0.2); Basophils % (auto) 0.6 % (0.0-2.0); Eosinophils # (auto) 0.1 10 ^3/uL (0-0.8); Eosinophils % (auto) 0.5 % (0.0-7.0); Hematocrit 27.2 % (36.0-46.0); Lymphocytes # (auto) 1.4 10 ^3/uL (0.4-5.4); Lymphocytes % (auto) 7.1 % (10.0-50.0); Mean Corpuscular Hemoglobin 34.5 pg (28.0-32.0); Mean Corpuscular Hgb Conc. 33.1 g/dL (32.0-36.0); Mean Corpuscular Volume 104.3 fL (80.0-100.0); Monocytes # (auto) 1.5 10 ^3/uL (0-1.3); Monocytes % (auto) 7.5 % (0.0-12.0); Neutrophils # (auto) 16.9 10 ^3/uL (1.6-8.6); Neutrophils % (auto) 84.3 % (37.0-80.0); Nucleated Red Blood Cells % 1.6 %; Platelet Count (auto) 128 10^3/uL (140-450); Red Cell Distribution Width 14.5 % (11.8-14.3)
[2020-11-05 04:37] LABS: Potassium 4.2 mmol/L (3.5-5.1)
[2020-11-05 04:50] LABS: Albumin 2.6 g/dL (3.4-5.0); BUN/Creatinine Ratio 10.7; Calcium 8.5 mg/dL (8.5-10.1); Total Protein 5.8 g/dL (6.4-8.2)
[2020-11-05] MEDS: LEVALBUTEROL HCL 1.25 MG/3 ML NEB NEB SCH ×3 (06:22→22:30)
[2020-11-05] MEDS: IPRATROPIUM BROM 0.5 MG/2.5ML INH SOL NEB SCH ×3 (06:22→22:31)
[2020-11-05] MEDS: ACCU-CHEK COMFORT CURVE STRIP VI SCH ×4 (07:00→21:41)
[2020-11-05] MEDS: InsuLIN REG 1unit/0.01ml Soln (100units/ml) SC SCH ×4 (07:00→21:41)
[2020-11-05] MEDS ORDERED: SODIUM CHL 0.9% 1000 ML BAG XX ONE (07:00)
[2020-11-05] MEDS ORDERED: DOPamine 3200MCG/ML 250 ML IV SCH (07:30)
[2020-11-05] MEDS: CALCIUM ACETATE 667 MG CAP PO SCH ×3 (08:00→18:32)
[2020-11-05] MEDS: PHENYLEPHRINE INJ 80 MG in SODIUM CHL 0.9% 242 ML IV SCH ×2 (08:40→18:08)
[2020-11-05] MEDS ORDERED: ALBUMIN 25% 100 ML IV ONE (09:45)
[2020-11-05] MEDS: VASOPRESSIN 50 UNITS in D5W 5% 247.5 ML IV SCH (10:30)
[2020-11-05] MEDS: MIDAZOLAM DRIP 50 mg/50mL 50 ML IV SCH (10:57)
[2020-11-05] MEDS: DOBUTamine HCL 500 MG in D5W 5% 210 ML IV SCH (11:07)
[2020-11-05] MEDS: MEROPENEM 500MG IVPB 50 ML IV SCH ×2 (11:41→21:48)
[2020-11-05] MEDS: ASPirin 81 mg TAB PO SCH (12:03)
[2020-11-05] MEDS: PANTOPRAZOLE 40 MG/10 ML VIAL INJ IV SCH (12:04)
[2020-11-05] MEDS: fentaNYL Drip 2500mCg/250mlNS 250 ML IV SCH (14:00)
[2020-11-05] MEDS: BUDESONIDE (INHALATION) 0.5 MG/2 ML NEB NEB SCH ×2 (14:31→22:31)
[2020-11-05] MEDS ORDERED: EPOETIN ALFA-EPBX 10,000 UNIT/1ML VIAL SC ONE (21:00)
[2020-11-05] MEDS: INSULIN LANTUS (GLARGINE) 1 /0.01ml (100units/ml) SC SCH (21:41)
[2020-11-05] MEDS: ATORVASTATIN 20 MG TAB PO SCH (21:45)
[2020-11-06] VITALS (102 sets, daily range): BP systolic 67–132; BP diastolic 18–71
[2020-11-06] MEDS: VASOPRESSIN 50 UNITS in D5W 5% 247.5 ML IV SCH ×2 (00:42→14:21)
[2020-11-06] MEDS: PHENYLEPHRINE INJ 80 MG in SODIUM CHL 0.9% 242 ML IV SCH ×3 (02:25→17:50)
[2020-11-06 04:12] LABS: Eosinophils # (auto) 0.1 10 ^3/uL (0-0.8); Hematocrit 23.5 % (36.0-46.0); Monocytes # (auto) 1.3 10 ^3/uL (0-1.3); Nucleated Red Blood Cells % 0.8 %; Platelet Count (auto) 87 10^3/uL (140-450); Red Blood Cells 2.22 10^6/uL (4.0-5.20)
[2020-11-06 04:14] LABS: Basophils # (auto) 0.1 10 ^3/uL (0-0.2); Basophils % (auto) 0.4 % (0.0-2.0); Eosinophils % (auto) 0.5 % (0.0-7.0); Hemoglobin 7.8 g/dL (12.2-16.2); Lymphocytes # (auto) 0.9 10 ^3/uL (0.4-5.4); Lymphocytes % (auto) 6.4 % (10.0-50.0); Mean Corpuscular Hemoglobin 35.2 pg (28.0-32.0); Mean Corpuscular Hgb Conc. 33.3 g/dL (32.0-36.0); Mean Corpuscular Volume 105.9 fL (80.0-100.0); Monocytes % (auto) 9.7 % (0.0-12.0); Neutrophils # (auto) 11.2 10 ^3/uL (1.6-8.6); Red Cell Distribution Width 14.6 % (11.8-14.3); White Blood Cell 13.4 10^3/uL (4.4-10.8)
[2020-11-06 04:57] LABS: INR 1.33 (0.9-1.15)
[2020-11-06 05:01] LABS: Albumin 2.9 g/dL (3.4-5.0); Calcium 8.3 mg/dL (8.5-10.1); Magnesium 2.4 mg/dL (1.6-2.6); Potassium 4.4 mmol/L (3.5-5.1)
[2020-11-06 05:04] LABS: BUN/Creatinine Ratio 10.9; Bilirubin, Total 1.4 mg/dL (0.2-1.0); Total Protein 5.8 g/dL (6.4-8.2)
[2020-11-06] MEDS: InsuLIN REG 1unit/0.01ml Soln (100units/ml) SC SCH ×4 (06:00→21:50)
[2020-11-06] MEDS: ACCU-CHEK COMFORT CURVE STRIP VI SCH ×4 (06:00→21:41)
[2020-11-06] MEDS: BUDESONIDE (INHALATION) 0.5 MG/2 ML NEB NEB SCH ×2 (06:32→18:19)
[2020-11-06] MEDS: LEVALBUTEROL HCL 1.25 MG/3 ML NEB NEB SCH ×3 (06:32→18:19)
[2020-11-06] MEDS: IPRATROPIUM BROM 0.5 MG/2.5ML INH SOL NEB SCH ×3 (06:32→18:19)
[2020-11-06] MEDS ORDERED: ALBUMIN 5% 250 ML IV ONE (07:30)
[2020-11-06] MEDS: CALCIUM ACETATE 667 MG CAP PO SCH ×3 (07:59→18:23)
[2020-11-06] MEDS: ASPirin 81 mg TAB PO SCH (09:42)
[2020-11-06] MEDS: MEROPENEM 500MG IVPB 50 ML IV SCH ×2 (09:42→21:50)
[2020-11-06] MEDS: MIDAZOLAM DRIP 50 mg/50mL 50 ML IV SCH (09:42)
[2020-11-06] MEDS: PANTOPRAZOLE 40 MG/10 ML VIAL INJ IV SCH (09:42)
[2020-11-06] MEDS: DOBUTamine HCL 500 MG in D5W 5% 210 ML IV SCH (11:15)
[2020-11-06] MEDS: fentaNYL Drip 2500mCg/250mlNS 250 ML IV SCH (14:15)
[2020-11-06] MEDS: METOCLOPRAMIDE HCL 5MG/ml INJ 2ml VIAL IV SCH ×2 (14:21→21:50)
[2020-11-06] MEDS ORDERED: NOREPINEPHRINE 8 MG/250ML KIT 250 ML IV ONE (18:39)
[2020-11-06] MEDS ORDERED: NOREPINEPHRINE BITARTRATE 2 ML IV ONE (18:44)
[2020-11-06] MEDS: NOREPINEPHRINE BITARTRATE 16 MG in SODIUM CHL 0.9% 234 ML IV SCH (18:45)
[2020-11-06] MEDS: ATORVASTATIN 20 MG TAB PO SCH (21:47)
[2020-11-06] MEDS: INSULIN LANTUS (GLARGINE) 1 /0.01ml (100units/ml) SC SCH (21:49)
[2020-11-06] MEDS: Nepro With Carb Steady 1 Liter Bottle GT SCH (22:00)
[2020-11-07] VITALS (68 sets, daily range): BP systolic 76–124; BP diastolic 16–38
[2020-11-07] MEDS: PHENYLEPHRINE INJ 80 MG in SODIUM CHL 0.9% 242 ML IV SCH ×2 (00:26→07:46)
[2020-11-07] MEDS: VASOPRESSIN 50 UNITS in D5W 5% 247.5 ML IV SCH (02:56)
[2020-11-07] MEDS: fentaNYL Drip 2500mCg/250mlNS 250 ML IV SCH (03:02)
[2020-11-07] MEDS: DOBUTamine HCL 500 MG in D5W 5% 210 ML IV SCH (04:00)
[2020-11-07 04:44] LABS: Basophils # (auto) 0 10 ^3/uL (0-0.2); Basophils % (auto) 0.2 % (0.0-2.0); Eosinophils # (auto) 0 10 ^3/uL (0-0.8); Hematocrit 25.3 % (36.0-46.0); Hemoglobin 8.4 g/dL (12.2-16.2); Lymphocytes % (auto) 6.9 % (10.0-50.0); Mean Corpuscular Hgb Conc. 33.1 g/dL (32.0-36.0); Mean Corpuscular Volume 105.8 fL (80.0-100.0); Monocytes # (auto) 1.8 10 ^3/uL (0-1.3); Monocytes % (auto) 11.9 % (0.0-12.0); Neutrophils # (auto) 12.4 10 ^3/uL (1.6-8.6); Nucleated Red Blood Cells % 2.4 %; Platelet Count (auto) 63 10^3/uL (140-450); Red Blood Cells 2.39 10^6/uL (4.0-5.20); Red Cell Distribution Width 14.6 % (11.8-14.3); White Blood Cell 15.3 10^3/uL (4.4-10.8)
[2020-11-07 05:11] LABS: BUN/Creatinine Ratio 12.5; Calcium 8.6 mg/dL (8.5-10.1); Potassium 4.8 mmol/L (3.5-5.1)
[2020-11-07] MEDS: LEVALBUTEROL HCL 1.25 MG/3 ML NEB NEB SCH ×2 (06:17→14:45)
[2020-11-07] MEDS: IPRATROPIUM BROM 0.5 MG/2.5ML INH SOL NEB SCH ×2 (06:17→14:46)
[2020-11-07] MEDS: BUDESONIDE (INHALATION) 0.5 MG/2 ML NEB NEB SCH (06:17)
[2020-11-07] MEDS: METOCLOPRAMIDE HCL 5MG/ml INJ 2ml VIAL IV SCH ×2 (06:26→14:00)
[2020-11-07] MEDS: ACCU-CHEK COMFORT CURVE STRIP VI SCH ×2 (06:26→11:43)
[2020-11-07] MEDS ORDERED: SODIUM CHL 0.9% 1000 ML BAG XX ONE (07:00)
[2020-11-07] MEDS: InsuLIN REG 1unit/0.01ml Soln (100units/ml) SC SCH ×2 (07:27→11:46)
[2020-11-07] MEDS: CALCIUM ACETATE 667 MG CAP PO SCH ×2 (08:00→12:00)
[2020-11-07] MEDS: MEROPENEM 500MG IVPB 50 ML IV SCH (10:00)
[2020-11-07] MEDS ORDERED: CLOPIDOGREL BISULFATE 75 MG TAB PO SCH (10:00)
[2020-11-07] MEDS ORDERED: FAMOTIDINE (10MG/ML) 2ML VL IV SCH (10:00)
[2020-11-07] MEDS ORDERED: EPINEPHrine HCL 250 ML IV SCH (10:00)
[2020-11-07] MEDS: ASPirin 81 mg TAB PO SCH (10:00)
[2020-11-07] MEDS: MIDAZOLAM DRIP 50 mg/50mL 50 ML IV SCH (10:15)
[2020-11-07] MEDS ORDERED: ALBUMIN 25% 100 ML IV ONE ×2 (12:00→13:38)
[2020-11-07] MEDS ORDERED: ALBUMIN 25% 0 ML IV ONE (13:37)
[2020-11-07] MEDS: NOREPINEPHRINE BITARTRATE 16 MG in SODIUM CHL 0.9% 234 ML IV SCH (15:00)
[2020-11-07] MEDS ORDERED: LORazepam 2MG/ML-1ML VIAL IV PRN (15:15)
[2020-11-07] MEDS ORDERED: MORPHINE SULF INJ 2 MG/ML SYRINGE 1ML IV PRN (15:15)
[2020-11-07] MEDS ORDERED: EPOETIN ALFA-EPBX 10,000 UNIT/1ML VIAL SC ONE (21:00)
[2020-11-08] MEDS ORDERED: SODIUM CHL 0.9% 1000 ML BAG XX ONE (07:00)
[2020-11-08] MEDS ORDERED: EPOETIN ALFA-EPBX 10,000 UNIT/1ML VIAL SC ONE (21:00)
== END 2020-11-07 23:04 | DRG 870 ==
LOC: ER 17:42 → TELE 21:12 → TELE-WESTW 10-29 03:40 → ICU WEST 10-29 18:18
PROVIDERS: ADMIT Nurse Practitioner; ATTEND Internal Medicine
PROC: 5A09357 Assistance with Respiratory Ventilation, Less than 24 Consecutive Hours, Continuous Positive Airway Pressure (ICD-10-PCS; 2020-10-29)
PROC: 5A1D70Z Performance of Urinary Filtration, Intermittent, Less than 6 Hours Per Day (ICD-10-PCS; 2020-10-29)
PROC: B54BZZA Ultrasonography of Right Lower Extremity Veins, Guidance (ICD-10-PCS; principal; 2020-10-30)
PROC: 06HY33Z Insertion of Infusion Device into Lower Vein, Percutaneous Approach (ICD-10-PCS; 2020-10-30)
PROC: 5A09357 Assistance with Respiratory Ventilation, Less than 24 Consecutive Hours, Continuous Positive Airway Pressure (ICD-10-PCS; 2020-10-30)
PROC: 5A1D70Z Performance of Urinary Filtration, Intermittent, Less than 6 Hours Per Day (ICD-10-PCS; 2020-10-31)
PROC: 5A1955Z Respiratory Ventilation, Greater than 96 Consecutive Hours (ICD-10-PCS; 2020-11-01)
PROC: 0BH17EZ Insertion of Endotracheal Airway into Trachea, Via Natural or Artificial Opening (ICD-10-PCS; 2020-11-01)
PROC: 5A1D70Z Performance of Urinary Filtration, Intermittent, Less than 6 Hours Per Day (ICD-10-PCS; 2020-11-02)
PROC: 5A1D70Z Performance of Urinary Filtration, Intermittent, Less than 6 Hours Per Day (ICD-10-PCS; 2020-11-04)
PROC: 5A1D70Z Performance of Urinary Filtration, Intermittent, Less than 6 Hours Per Day (ICD-10-PCS; 2020-11-05)
PROC: 0W9930Z Drainage of Right Pleural Cavity with Drainage Device, Percutaneous Approach (ICD-10-PCS; 2020-11-06)
PROC: 5A1D70Z Performance of Urinary Filtration, Intermittent, Less than 6 Hours Per Day (ICD-10-PCS; 2020-11-07)
DX: A41.9 Sepsis, unspecified organism (principal); N18.6 End stage renal disease; J18.9 Pneumonia, unspecified organism; I21.4 Non-ST elevation (NSTEMI) myocardial infarction; J96.01 Acute respiratory failure with hypoxia; R65.21 Severe sepsis with septic shock; I50.43 Acute on chronic combined systolic (congestive) and diastolic (congestive) heart failure; J98.11 Atelectasis; J91.8 Pleural effusion in other conditions classified elsewhere; I13.2 Hypertensive heart and chronic kidney disease with heart failure and with stage 5 chronic kidney disease, or end stage renal disease; I42.9 Cardiomyopathy, unspecified; Z20.822 Contact with and (suspected) exposure to COVID-19; D63.8 Anemia in other chronic diseases classified elsewhere; E78.5 Hyperlipidemia, unspecified; I27.20 Pulmonary hypertension, unspecified; Z99.2 Dependence on renal dialysis; D69.59 Other secondary thrombocytopenia; K76.1 Chronic passive congestion of liver; E03.9 Hypothyroidism, unspecified; E11.22 Type 2 diabetes mellitus with diabetic chronic kidney disease; I50.82 Biventricular heart failure; K80.20 Calculus of gallbladder without cholecystitis without obstruction; Z66 Do not resuscitate; Z79.02 Long term (current) use of antithrombotics/antiplatelets; Z79.4 Long term (current) use of insulin; Z79.82 Long term (current) use of aspirin; Z82.49 Family history of ischemic heart disease and other diseases of the circulatory system; Z83.3 Family history of diabetes mellitus; Z79.899 Other long term (current) drug therapy
CPT/HCPCS: 36415; 36600; 71045; 76604; 76705; 80048; 80053; 80061; 80202; 82040; 82805; 82962; 83036; 83605; 83615; 83735; 83880; 84443; 84484; 85007; 85025; 85027; 85379; 85610; 85730; 86704; 86706; 86708; 86803; 87040; 87070; 87081; 87205; 87340; 87426; 90935; 93005; 93306; 94002; 94003; 94640; 94660; 96365; 96367; 96375; 97163; 99291; C9113; G0378; J0153; J0171; J0696; J1265; J1642; J1815; J1885; J2185; J2250; J2405; J2543; J3490; J7060; P9047